=== PATIENT | male | born 1950 | race Caucasian/White ===

== ENCOUNTER → 2016-10-08 | Outpatient (CLI) | payer MEDICARE ==
[2016-10-08 10:13] LABS: Basophils # (A) 0.1 k/uL (0-0.2); Basophils % (A) 1 %; CH 29.1; Eosinophils # (A) 0.3 k/uL (0-0.7); Eosinophils % (A) 5 %; HDW 2.87; HGB 14.9 gm/dL (13.0-17.5); Luc # (Auto) 0.11; Luc % (Auto) 2; Lymphocytes # (A) 1.5 k/uL (1.0-4.8); Lymphocytes % (A) 23 %; MCH 29.1 pg (25.0-35.0); MCHC 33.9 g/dL (31.0-37.0); Monocytes # (A) 0.4 k/uL (0-1.0); Monocytes % (A) 7 %; Neutrophils % (A) 63 %; RBC 5.12 m/uL (4.30-5.90); RDW 13.7 % (11.5-15.5); WBC 6.4 k/uL (3.8-10.6); WBC (Perox) 6.51
[2016-10-08 10:25] LABS: ALT 41 U/L (21-72); AST 23 U/L (17-59); Alkaline Phosphatase 99 U/L (38-126); Anion Gap 13 mmol/L; Blood Urea Nitrogen 17 mg/dL (9-20); Calcium 9.3 mg/dL (8.4-10.2); Carbon Dioxide 25 mmol/L (22-30); Chloride 105 mmol/L (98-107); Cholesterol 113 mg/dL (<200); Glucose 131 mg/dL (74-99); HDL Cholesterol 38 mg/dL (40-60); Non-African American GFR(MDRD) >60 (>60 ml/min/1.73 sqM); Potassium 3.9 mmol/L (3.5-5.1); Sodium 143 mmol/L (137-145); Total Bilirubin 0.8 mg/dL (0.2-1.3); Total Protein 6.6 g/dL (6.3-8.2); Triglycerides 119 mg/dL (<150)
[2016-10-08 13:49] LABS: Hemoglobin A1C 6.6 % (4.2-6.1)
== END | disposition home or self-care (01) ==
LOC: LABWHC1 09:14
PROVIDERS: ATTEND Internal Medicine
DX: E78.5 Hyperlipidemia, unspecified (principal); E55.9 Vitamin D deficiency, unspecified; E11.9 Type 2 diabetes mellitus without complications; I10 Essential (primary) hypertension
CPT/HCPCS: 36415; 80053; 80061; 82306; 83036; 84439; 84443; 85025

== ENCOUNTER → 2017-08-06 | Outpatient (CLI) | payer MEDICARE ==
--- NOTE | 2017-08-06 10:16 | CT ---
EXAMINATION TYPE: CT abdomen pelvis wo con DATE OF EXAM: 08/06/2017 HISTORY: Right sided flank pain with hematuria and history of stones CT DLP: 1145 mGycm. Automated Exposure Control for Dose Reduction was Utilized. TECHNIQUE: CT scan of the abdomen and pelvis is performed without oral or IV contrast. COMPARISON: NONE FINDINGS: Within the limitations of a non-contrast study, the following observations are made. LUNG BASES: There is dense coronary artery calcification and/or stent in the RCA distribution. LIVER/GB: There are multiple small dependent gallstones and/or gallbladder sludge in gallbladder. No surrounding inflammatory change is present. PANCREAS: No significant abnormality is seen. SPLEEN: No significant abnormality is seen. ADRENALS: No significant abnormality is seen. KIDNEYS: There are 6 mm calculus in the mid to distal right ureter on axial image 115 and coronal don ge 60 not causing significant right-sided hydronephrosis. There is no additional renal calculi identi fied bilaterally. There is no significant left-sided hydronephrosis. No intraluminal calculus and hernan dder is present. BOWEL: Sutures from appendectomy at base of cecum are identified. There are numerous diverticula in t he sigmoid colon. There is no convincing CT evidence for acute diverticulitis. There is no suspicious small or large bowel dilatation. GENITAL ORGANS: No gross abnormality seen. LYMPH NODES: No greater than 1cm abdominal or pelvic lymph nodes are appreciated. OSSEOUS STRUCTURES there is moderate to severe multilevel lateral spurring in the thoracic and upper lumbar spine. There is facet arthropathy lower lumbar levels. There is moderate joint space loss and mild spurring in both hips. OTHER: No significant additional abnormality is seen. IMPRESSION: 1. There is 6 mm calculus in the right mid to distal ureter just past pelvic brim not causing signifi cant right-sided hydronephrosis.
== END | disposition home or self-care (01) ==
LOC: RADCTMAIN 09:21
PROVIDERS: ATTEND Urology
DX: N20.1 Calculus of ureter (principal)
CPT/HCPCS: 74176

== ENCOUNTER → 2017-08-31 | Outpatient (CLI) | payer MEDICARE ==
--- NOTE | 2017-08-31 09:38 | XR ---
EXAMINATION TYPE: XR abdomen 1V DATE OF EXAM: 08/31/2017 9:17 AM CLINICAL HISTORY: History of kidney stones TECHNIQUE: Single supine KUB image of the abdomen is obtained. COMPARISON: CT abdomen and pelvis August 06, 2017. FINDINGS: Over right mid sacrum there is redemonstration of 6 mm mid to distal right ureter calculus stable in position. Surgical clips right lower quadrant from appendectomy are redemonstrated. There is vascular calcifica tion phleboliths in the pelvis again seen. There is multilevel spurring in the spine. IMPRESSION: Stable 6 mm mid to distal right ureter calculus.
== END | disposition home or self-care (01) ==
LOC: RADXRMAIN 09:00
PROVIDERS: ATTEND Urology
DX: N20.1 Calculus of ureter (principal)
CPT/HCPCS: 74018

== ENCOUNTER → 2017-09-15 | Outpatient (CLI) | payer MEDICARE ==
[2017-09-15 09:42] LABS: Appearance,Urine Clear (Clear); Bacteria,Urine Moderate /hpf; Bilirubin,Urine Negative (Negative); Blood,Urine Negative (Negative); Color,Urine Yellow; Glucose,Urine (UA) Negative (Negative); Ketones,Urine Negative (Negative); Leukocyte Esterase,Urine Negative (Negative); Mucus,Urine Rare /hpf; Nitrite,Urine Negative (Negative); Protein,Urine 1+ (Negative); RBC,Urine 3 /hpf (0-5); Specific Gravity,Urine 1.027 (1.001-1.035); WBC,Urine 1 /hpf (0-5)
[2017-09-15 09:47] LABS: Basophils # (A) 0.1 k/uL (0-0.2); Basophils % (A) 1 %; Eosinophils # (A) 0.2 k/uL (0-0.7); Eosinophils % (A) 3 %; HCT 42.5 % (39.0-53.0); HGB 14.2 gm/dL (13.0-17.5); Lymphocytes # (A) 1.4 k/uL (1.0-4.8); Lymphocytes % (A) 24 %; MCH 28.1 pg (25.0-35.0); MCHC 33.4 g/dL (31.0-37.0); Mean Platelet Volume 7.4; Monocytes # (A) 0.4 k/uL (0-1.0); Monocytes % (A) 7 %; Neutrophils # (A) 3.5 k/uL (1.3-7.7); Neutrophils % (A) 64 %; Platelet Count 136 k/uL (150-450); RBC 5.05 m/uL (4.30-5.90); RDW 13.6 % (11.5-15.5); WBC 5.6 k/uL (3.8-10.6)
[2017-09-15 10:42] LABS: ALT 32 U/L (21-72); AST 21 U/L (17-59); Albumin 3.9 g/dL (3.5-5.0); Alkaline Phosphatase 107 U/L (38-126); Anion Gap 12 mmol/L; Blood Urea Nitrogen 16 mg/dL (9-20); Carbon Dioxide 29 mmol/L (22-30); Chloride 102 mmol/L (98-107); Cholesterol 102 mg/dL (<200); Glucose 155 mg/dL (74-99); HDL Cholesterol 30 mg/dL (40-60); LDL Cholesterol,Calculated 53 mg/dL (0-99); Potassium 4.5 mmol/L (3.5-5.1); Sodium 143 mmol/L (137-145); Total Bilirubin 0.6 mg/dL (0.2-1.3); Total Protein 6.3 g/dL (6.3-8.2); Triglycerides 95 mg/dL (<150); Uric Acid 5.7 mg/dL (3.5-8.5)
[2017-09-15 10:58] LABS: T4, Free (Free Thyroxine) 1.04 ng/dL (0.78-2.19)
[2017-09-15 11:02] LABS: Erythrocyte Sedimentation Rate 8 mm/hr (0-15)
[2017-09-15 12:08] LABS: PSA Annual Screen 0.54 ng/mL (0.00-4.00)
== END | disposition home or self-care (01) ==
LOC: LABWHC1 08:35
PROVIDERS: ATTEND Internal Medicine
DX: N20.0 Calculus of kidney (principal); R31.9 Hematuria, unspecified; N04.9 Nephrotic syndrome with unspecified morphologic changes
CPT/HCPCS: 84439; 80061; 80053; 85652; 84443; 84550; 85025; 81001; 83970; 87086; 82043; 82570; 36415; G0103

== ENCOUNTER → 2017-10-08 | Outpatient (CLI) | payer MEDICARE ==
--- NOTE | 2017-10-08 13:20 | XR ---
EXAMINATION TYPE: XR KUB DATE OF EXAM: 10/08/2017 12:09 PM CLINICAL HISTORY: Right-sided nephrolithiasis. TECHNIQUE: Single supine KUB image of the abdomen is obtained. COMPARISON: 08/31/2017. FINDINGS: As noted on the prior exam there is an approximately 6 mm calculus that was previously disp layed be within the distal ureter. This overlies the right hemisacrum. This is unchanged from the exa m of 08/31/2017. Multiple other phleboliths are seen within the pelvis. Mild vascular calcifications a re noted. Surgical clips are present within the right lower quadrant. No evidence of dilated bowel. T he lung bases are clear and the osseous structures are intact. Moderate bilateral femoral acetabular arthropathy is seen with bilateral femoral head neck junction protuberance CAM deformities, that may predispose the patient to internal impingement. IMPRESSION: Stable appearing approximate 6 mm calculus overlying the right hemisacrum previously demo nstrated to be within the distal ureter. This is unchanged in position from the prior of 08/31/2017.
== END | disposition home or self-care (01) ==
LOC: RADXRMAIN 11:57
PROVIDERS: ATTEND Urology
DX: N20.1 Calculus of ureter (principal)
CPT/HCPCS: 74018

== ENCOUNTER → 2017-10-11 | Outpatient (CLI) | payer MEDICARE ==
[2017-10-11 08:41] LABS: Basophils # (A) 0.1 k/uL (0-0.2); Basophils % (A) 1 %; Eosinophils # (A) 0.2 k/uL (0-0.7); Eosinophils % (A) 3 %; HCT 41.2 % (39.0-53.0); HGB 14.3 gm/dL (13.0-17.5); Lymphocytes # (A) 1.9 k/uL (1.0-4.8); Lymphocytes % (A) 27 %; MCH 28.9 pg (25.0-35.0); MCHC 34.8 g/dL (31.0-37.0); MCV 83.1 fL (80.0-100.0); Mean Platelet Volume 6.7; Monocytes # (A) 0.5 k/uL (0-1.0); Monocytes % (A) 7 %; Neutrophils # (A) 4.3 k/uL (1.3-7.7); Neutrophils % (A) 60 %; Platelet Count 141 k/uL (150-450); RBC 4.96 m/uL (4.30-5.90); RDW 14.1 % (11.5-15.5); WBC 7.2 k/uL (3.8-10.6)
== END | disposition home or self-care (01) ==
LOC: LABWHC1 07:47
PROVIDERS: ATTEND Internal Medicine
DX: D69.6 Thrombocytopenia, unspecified (principal)
CPT/HCPCS: 36415; 85025

== ENCOUNTER → 2017-10-18 | Outpatient (CLI) | payer MEDICARE ==
[2017-10-18 14:00] LABS: Calcium 9.3 mg/dL (8.4-10.2); Potassium 4.1 mmol/L (3.5-5.1)
== END | disposition home or self-care (01) ==
LOC: LABPAT 13:21
PROVIDERS: ATTEND Urology
DX: Z01.818 Encounter for other preprocedural examination (principal); E11.9 Type 2 diabetes mellitus without complications; I10 Essential (primary) hypertension; N20.1 Calculus of ureter
CPT/HCPCS: 36415; 80048; 93005

== ENCOUNTER 2017-10-25 05:50 | Day surgery (SDC) | payer MEDICARE ==
[2017-10-19 12:00] VITALS: BMI 33.2
[~2017-10-25 05:50] MED LIST: LACTATED RINGERS 1,000 ML IV SCH; Pre Op ABX Message 1 EACH MISC MISCELLANE ONE
[2017-10-25] MEDS ORDERED: LIDOCAINE 1% 20 ML VIAL (10MG/ML) FOR IV START INTRADERMA ONE (06:35)
[2017-10-25 06:38] LABS: Glucose,Whole Blood 153 mg/dL (75-99)
[2017-10-25] MEDS ORDERED: LACTATED RINGERS 1,000 ML IV ONE ×3 (06:38→08:49)
[2017-10-25 06:42] VITALS: RESP 16; TEMP 97.8
--- NOTE | 2017-10-25 07:04 | XR ---
EXAMINATION TYPE: XR KUB DATE OF EXAM: 10/25/2017 CLINICAL DATA: 67-year-old male preop lithotripsy, [facility] COMPARISON: 10/08/2017 FINDINGS: Lung bases are clear. Supine imaging limited for assessment of free intraperitoneal air. Overall nonobstructive bowel gas pattern. Cholecystectomy clips are present. Mild stool burden. Vascular calcifications are present in the pelvis. Unchanged 6 mm calcification projecting over the r ight sacrum is equivocal for a ureteral calculus or vascular calcification. IMPRESSION: Some vascular calcifications in the pelvis. Unchanged 6 mm calcification projecting over the right si de of the sacrum equivocal for vascular calcification versus right-sided ureteral calculus.
[2017-10-25] MEDS ORDERED: GLYCOPYRROLATE 0.2 MG/ML 2 ML VIAL ONE (07:41)
[2017-10-25] MEDS ORDERED: fentaNYL (PF) 50 MCG/ML 2 ML AMP ONE (07:41)
[2017-10-25] MEDS ORDERED: MIDAZOLAM 2 MG/2 ML VIAL ONE (07:41)
[2017-10-25] MEDS ORDERED: PROPOFOL 10 MG/ML 20 ML VIAL IV ONE (07:41)
[2017-10-25] MEDS ORDERED: KETAMINE 10 MG/ML 20 ML VIAL ONE (07:41)
[2017-10-25] MEDS ORDERED: diphenhydrAMINE 50 MG/ML 1 ML VIAL ONE (07:41)
--- NOTE | 2017-10-25 08:33 | P.OP ---
Date of Procedure: 10/25/17 Preoperative Diagnosis: Right ureteral calculus Postoperative Diagnosis: Right ureteral calculus Procedure(s) Performed: Extracorporal shock wave lithotripsy Anesthesia: MAC Surgeon: Antwon Shaw Estimated Blood Loss (ml): 0 Pathology: none sent Condition: stable Disposition: PACU Indications for Procedure: The patient is a 67 year male with intermittent right abdominal pain secondary to a 2.5 x 6 mm calculus located at the right sacral coccygeal junction. The calculus was initially noted on a computed tomography scan in 07/25 and has not migrated significantly since then. Treatment options were reviewed with Dr. Carrasco and ESWL has been chosen. Description of Procedure: The patient was taken to the operating suite where adequate intravenous sedation was given. The patient was placed in the supine position on the fluoroscopy table. The right ureteral calculus was localized using biplanar fluoroscopy. Lithotripsy was performed using the Dornier compact delta unit. The patient received 3000 shocks at level 6 at a rate of 80 shocks per minute. There appeared to be fragmentation of the calculus. Anesthesia was reversed and the patient was returned to the recovery room awake and in satisfactory condition. He'll be seen back in [address] Carrasco at which time a KUB will be obtained.
[2017-10-25 08:42] VITALS: PULSE 77
[2017-10-25] MEDS ORDERED: Acetaminophen-Codeine 300-30mg TAB PO ONE (09:00)
[2017-10-25 10:03] VITALS: BP 110/67
== END 2017-10-25 10:36 | disposition home or self-care (01) ==
LOC: ORWHC2ENDO 05:50
PROVIDERS: ATTEND Urology
DX: N13.2 Hydronephrosis with renal and ureteral calculous obstruction (principal); I10 Essential (primary) hypertension; E11.9 Type 2 diabetes mellitus without complications; N52.9 Male erectile dysfunction, unspecified; K21.9 Gastro-esophageal reflux disease without esophagitis; Z87.891 Personal history of nicotine dependence; E78.5 Hyperlipidemia, unspecified; Z79.84 Long term (current) use of oral hypoglycemic drugs; Z79.899 Other long term (current) drug therapy; Z87.442 Personal history of urinary calculi; Z88.5 Allergy status to narcotic agent
CPT/HCPCS: 74018; 50590; J2250; J1200; J3010; J2704

== ENCOUNTER 2017-10-25 12:12 | Emergency (ER) | payer MEDICARE ==
[2017-10-25 12:33] VITALS: RESP 20; TEMP 98
[2017-10-25] MEDS ORDERED: SODIUM CHLORIDE 0.9% 1,000 ML IV STA (12:53)
[2017-10-25] MEDS ORDERED: MORPHINE SULFATE 2 MG/ML SYRINGE IVP STA (12:53)
--- NOTE | 2017-10-25 13:02 | ED ---
General Adult HPI - General Chief complaint: Recheck/Abnormal Lab/Rx Stated complaint: post surg pain/vomiting Time Seen by Provider: 10/25/17 12:41 Source: patient, RN notes reviewed Mode of arrival: ambulatory Limitations: no limitations - History of Present Illness Initial comments: Patient 67-year-old male presenting to the emergency room today status post with the ship she performed this morning at 7 AM. He does admit that he's had difficult time urinating since. Does admit to increased pressure lower his bladder. Patient states never had lithotripsy done in the past. He does admit that he had a 6 mm stone on the right side. Patient denies any other complaints or symptoms currently. Patient denies any recent fever, chills, shortness of breath, chest pain, numbness or tingling, dysuria or hematuria, constipation or diarrhea, headaches or visual changes, or any other complaints. - Related Data Home Medications Medication Instructions Recorded Confirmed Cholecalciferol [Vitamin D3] 2,000 unit PO DAILY 02/18/15 10/25/17 Omeprazole [PriLOSEC] 20 mg PO Q48H 02/18/15 10/25/17 glipiZIDE [Glipizide ER] 5 mg PO BID 02/18/15 10/25/17 sitaGLIPtin [Januvia] 100 mg PO DAILY 02/18/15 10/25/17 Aspirin [Adult Low Dose Aspirin EC] 81 mg PO DAILY 03/18/16 10/25/17 Atorvastatin [Lipitor] 40 mg PO HS 10/19/17 10/25/17 Triamterene-Hctz 37.5-25Mg 1 cap PO DAILY 10/19/17 10/25/17 [Dyazide 37.5-25 Capsule] amLODIPine BESYLATE/BENAZEPRIL 1 cap PO DAILY 10/19/17 10/25/17 [Lotrel 5-10 mg Capsule] metFORMIN HCL 1,000 mg PO BID 10/19/17 10/25/17 Previous Rx's Medication Instructions Recorded Acetaminophen-Codeine 300-30mg 1 tab PO Q6H PRN #8 tablet 10/25/17 [Tylenol w/codeine #3] Oxybutynin Chloride [Ditropan] 5 mg PO BID 10 Days tab 10/25/17 Phenazopyridine [Pyridium] 100 mg PO TID 3 Days day 10/25/17 Allergies Allergy/AdvReac Type Severity Reaction Status Date / Time hydromorphone [From Dilaudid] AdvReac Unknown Nausea & Verified 10/25/17 12:50 Vomiting morphine AdvReac Unknown Nausea & Verified 10/25/17 12:50 Vomiting Review of Systems ROS Statement: Those systems with pertinent positive or pertinent negative responses have been documented in the HPI. ROS Other: All systems not noted in ROS Statement are negative. Past Medical History Past Medical History: Diabetes Mellitus, GERD/Reflux, Hypertension Additional Past Medical History / Comment(s): SOB, FATIGUE History of Any Multi-Drug Resistant Organisms: None Reported Past Surgical History: Appendectomy, Heart Catheterization Additional Past Surgical History / Comment(s): sx for sleep apnea Past Anesthesia/Blood Transfusion Reactions: Postoperative Nausea & Vomiting ( PONV) Past Psychological History: No Psychological Hx Reported Smoking Status: Former smoker Past Alcohol Use History: None Reported Past Drug Use History: None Reported General Exam - General Exam Comments Initial Comments: General: The patient is awake and alert, in moderate distress. Eye: Pupils are equal, round and reactive to light, extra-ocular movements are intact. No nystagmus. There is normal conjunctiva bilaterally. No signs of icterus. Ears, nose, mouth and throat: There are moist mucous membranes and no oral lesions. Neck: The neck is supple, there is no tenderness or JVD. Cardiovascular: There is a regular rate and rhythm. No murmur, rub or gallop is appreciated. Respiratory: Lungs are clear to auscultation, respirations are non-labored, breath sounds are equal. No wheezes, stridor, rales, or rhonchi. Gastrointestinal: Tender to palpation lower abdomen. No rebound tenderness. No guarding. Musculoskeletal: Normal ROM, no tenderness. Strength 5/5. Sensation intact. Pulses equal bilaterally 2+. Neurological: A&O x 3. CN II-XII intact, There are no obvious motor or sensory deficits. Coordination appears grossly intact. Speech is normal. Skin: Skin is warm and dry and no rashes or lesions are noted. Psychiatric: Cooperative, appropriate mood & affect, normal judgment. Limitations: no limitations Course Vital Signs 10/25/17 10/25/17 12:31 14:40 Temperature 98.0 F Pulse Rate 86 87 Respiratory 20 20 Rate Blood Pressure 138/84 152/79 O2 Sat by Pulse 98 95 Oximetry Medical Decision Making - Medical Decision Making Patient reexamined at this time shows no signs of distress. He does admit that he is feeling better here in the emergency room. Patient abdomen soft on palpation. His labs been reviewed. Patient unable to urinate and give urine sample. Patient had bladder scan which showed proximate 180 mL. Patient's ultrasound does show a nondistended bladder. No evidence for hydronephrosis. X -ray reviewed shows no acute abnormality. Results were discussed with patient. Options of a Cole catheter were discussed. At this time patient states that he would like to be discharged home to see if he can urinate on his own. Patient is advised follow-up with the urologist tomorrow. Advised return if any symptoms increase or worsen. - Lab Data Result diagrams: 10/25/17 13:14 10/25/17 13:14 Lab Results 10/25/17 10/25/17 Range/Units 13:14 13:14 WBC 10.1 (3.8-10.6) k/uL RBC 4.97 (4.30-5.90) m/uL Hgb 14.1 (13.0-17.5) gm/dL Hct 40.5 (39.0-53.0) % MCV 81.4 (80.0-100.0) fL MCH 28.4 (25.0-35.0) pg MCHC 34.9 (31.0-37.0) g/dL RDW 13.5 (11.5-15.5) % Plt Count 141 L (150-450) k/uL Neutrophils % 81 % Lymphocytes % 12 % Monocytes % 5 % Eosinophils % 1 % Basophils % 1 % Neutrophils # 8.2 H (1.3-7.7) k/uL Lymphocytes # 1.2 (1.0-4.8) k/uL Monocytes # 0.5 (0-1.0) k/uL Eosinophils # 0.1 (0-0.7) k/uL Basophils # 0.1 (0-0.2) k/uL Sodium 139 (137-145) mmol/L Potassium 3.9 (3.5-5.1) mmol/L Chloride 102 (98-107) mmol/L Carbon Dioxide 20 L (22-30) mmol/L Anion Gap 17 mmol/L BUN 20 (9-20) mg/dL Creatinine 1.07 (0.66-1.25) mg/dL Est GFR (CKD-EPI)AfAm 82 (>60 ml/min/1.73 sqM) Est GFR (CKD-EPI)NonAf 71 (>60 ml/min/1.73 sqM) Glucose 193 H (74-99) mg/dL Calcium 8.9 (8.4-10.2) mg/dL Total Bilirubin 1.0 (0.2-1.3) mg/dL AST 26 (17-59) U/L ALT 45 (21-72) U/L Alkaline Phosphatase 98 (38-126) U/L Total Protein 6.5 (6.3-8.2) g/dL Albumin 4.1 (3.5-5.0) g/dL Lipase 93 (23-300) U/L Disposition Clinical Impression: Abdominal pain Disposition: HOME SELF-CARE Condition: Good Instructions: Abdominal Pain (ED) Additional Instructions: Please follow-up with urology tomorrow. Please return to emergency room if unable to urinate or for any other concerns. Prescriptions: Oxybutynin Chloride [Ditropan] 5 mg PO BID 10 Days tab Phenazopyridine [Pyridium] 100 mg PO TID 3 Days day Is patient prescribed a controlled substance at d/c from ED?: No Referrals: Skyler Joseph MD [Primary Care Provider] - 1-2 days Time of Disposition: 14:52
--- NOTE | 2017-10-25 13:10 | XR ---
EXAMINATION TYPE: XR KUB DATE OF EXAM: 10/25/2017 1:03 PM CLINICAL HISTORY: Increased pain with diminished urine output and vomiting after lithotripsy today TECHNIQUE: 3 Upright KUB images of the abdomen are obtained. COMPARISON: Abdominal x-ray from earlier today. CT abdomen pelvis August 06, 2017. FINDINGS: Oval 6 mm calculus over right sacrum is not clearly seen on current study. No new nephrolit hiasis. There is overall nonobstructive bowel gas pattern. Surgical clips right lower quadrant over iliac cre st are redemonstrated from appendectomy. No pneumoperitoneum is present. There is new left basilar li near atelectasis. IMPRESSION: Suspected successful treatment of distal right ureter calculus. Overall nonobstructive bowel gas wendy matthew remains present. New left basilar lateral linear atelectasis is noted.
[2017-10-25] MEDS ORDERED: PHENAZOPYRIDINE 100 MG TAB PO STA (13:11)
[2017-10-25] MEDS ORDERED: OXYBUTYNIN CHLORIDE 5 MG TAB PO STA (13:11)
[2017-10-25 13:32] LABS: Basophils # (A) 0.1 k/uL (0-0.2); Basophils % (A) 1 %; Eosinophils # (A) 0.1 k/uL (0-0.7); Eosinophils % (A) 1 %; HCT 40.5 % (39.0-53.0); HGB 14.1 gm/dL (13.0-17.5); Lymphocytes # (A) 1.2 k/uL (1.0-4.8); Lymphocytes % (A) 12 %; MCH 28.4 pg (25.0-35.0); MCHC 34.9 g/dL (31.0-37.0); MCV 81.4 fL (80.0-100.0); Mean Platelet Volume 6.9; Monocytes # (A) 0.5 k/uL (0-1.0); Monocytes % (A) 5 %; Neutrophils # (A) 8.2 k/uL (1.3-7.7); Neutrophils % (A) 81 %; Platelet Count 141 k/uL (150-450); RBC 4.97 m/uL (4.30-5.90); RDW 13.5 % (11.5-15.5); WBC 10.1 k/uL (3.8-10.6)
[2017-10-25 13:42] LABS: Albumin 4.1 g/dL (3.5-5.0); Calcium 8.9 mg/dL (8.4-10.2); Potassium 3.9 mmol/L (3.5-5.1); Total Protein 6.5 g/dL (6.3-8.2)
--- NOTE | 2017-10-25 14:05 | US ---
EXAMINATION TYPE: US kidneys/renal and bladder DATE OF EXAM: 10/25/2017 COMPARISON: CT 08/06/2017 CLINICAL HISTORY: Patient had lithotripsy done on the right side this morning. Pain and unable to uri leo much EXAM MEASUREMENTS: Right Kidney: 10.2 x 5.2 x 5.7 cm Left Kidney: 10.1 x 5.3 x 5.1 cm Right Kidney: No hydronephrosis or masses seen Left Kidney: No hydronephrosis or masses seen Bladder: wnl as visualized, not fully distended Bilateral Jets seen: No, bladder not fully distended There is no evidence for hydronephrosis at this point in time. No nephrolithiasis is seen. No jesús s are identified. The urinary bladder is somewhat poorly distended. Bilateral ureteral jets are and not seen. IMPRESSION: No hydronephrosis is evident bilaterally. No suspicious perinephric fluid collections are seen on don ges saved.
[2017-10-25 14:41] VITALS: BP 152/79; PULSE 87
== END 2017-10-25 15:18 | disposition home or self-care (01) ==
LOC: EC 12:12
DX: R10.30 Lower abdominal pain, unspecified (principal); R39.198 Other difficulties with micturition; E11.9 Type 2 diabetes mellitus without complications; K21.9 Gastro-esophageal reflux disease without esophagitis; I10 Essential (primary) hypertension; G47.30 Sleep apnea, unspecified; Z87.891 Personal history of nicotine dependence; Z95.818 Presence of other cardiac implants and grafts; Z79.82 Long term (current) use of aspirin; Z79.84 Long term (current) use of oral hypoglycemic drugs; Z79.899 Other long term (current) drug therapy; Z88.5 Allergy status to narcotic agent; Z98.890 Other specified postprocedural states
CPT/HCPCS: 51798; 36415; 80053; 83690; 85025; 74018; 76770; 99284; 96374; 96361 ×2; J2270

== ENCOUNTER → 2017-11-01 | Outpatient (CLI) | payer MEDICARE ==
--- NOTE | 2017-11-01 13:22 | XR ---
EXAMINATION TYPE: XR KUB DATE OF EXAM: 11/01/2017 CLINICAL DATA: 67 year-old male right ureteral calculus, one week postlithotripsy, [facility] COMPARISON: 10/25/2017 FINDINGS: Lung bases are clear. Supine imaging limited for assessment of free intraperitoneal air. Nonobstructive bowel gas pattern. Mild stool in the right side of the abdomen. Surgical clips in the right mid abdomen. Tiny phleboliths in the pelvis and vascular calcifications left internal region. No definite suspicio us calcification identified. IMPRESSION: No definite suspicious calcification seen. Tiny densities in the pelvis, suspected phlebolith.
== END | disposition home or self-care (01) ==
LOC: RADXRMAIN 09:38
PROVIDERS: ATTEND Urology
DX: N20.1 Calculus of ureter (principal)
CPT/HCPCS: 74018

== ENCOUNTER → 2017-11-29 | Outpatient (CLI) | payer MEDICARE ==
--- NOTE | 2017-11-29 10:20 | XR ---
EXAMINATION TYPE: XR abdomen 1V DATE OF EXAM: 11/29/2017 COMPARISON: 11/01/2017 INDICATION: Kidney stones postlithotripsy, side not specified TECHNIQUE: Single view abdomen frontal projection supine view FINDINGS: There is a normal bowel gas pattern. Psoas margins are normal. No organomegaly is present. The inferior border of the left kidney is less distinct than the previous examination. Psoas margins however appear within normal limits. Ultrasound could be performed if the re is concern for hematoma. Renal or ureteral stones are not identified. Surgical clips are in the right abdomen. IMPRESSION: 1. Suspicious renal or ureteral stones are not identified. 2. There is less distinct inferior border of the left kidney. If there is concern for hematoma at thi s level, ultrasound could be performed.
== END | disposition home or self-care (01) ==
LOC: RADXRMAIN 09:25
PROVIDERS: ATTEND Urology
DX: N20.1 Calculus of ureter (principal)
CPT/HCPCS: 74018

== ENCOUNTER → 2017-12-16 | Outpatient (CLI) | payer MEDICARE ==
--- NOTE | 2017-12-16 11:40 | XR ---
EXAMINATION TYPE: XR chest 2V DATE OF EXAM: 12/16/2017 COMPARISON: 02/20/2011 HISTORY: Cough TECHNIQUE: Frontal and lateral views of the chest are obtained. FINDINGS: There is no focal air space opacity, pleural effusion, or pneumothorax seen. The cardiac silhouette size is within normal limits. There are prominent epicardial fat pads noted is similar to the prior exam. The osseous structures are intact. Mild multilevel degenerative changes of the thorac ic spine are seen. IMPRESSION: No acute cardiopulmonary process.
== END | disposition home or self-care (01) ==
LOC: RADXRMAIN 10:58
PROVIDERS: ATTEND Internal Medicine
DX: R05 Cough (principal)
CPT/HCPCS: 71046

== ENCOUNTER → 2018-10-18 | Outpatient (CLI) | payer MEDICARE ==
[2018-10-18 11:13] LABS: Basophils # (A) 0.1 k/uL (0-0.2); Basophils % (A) 1 %; Eosinophils # (A) 0.3 k/uL (0-0.7); Eosinophils % (A) 4 %; HCT 39.5 % (39.0-53.0); HGB 13.1 gm/dL (13.0-17.5); Lymphocytes # (A) 1.4 k/uL (1.0-4.8); Lymphocytes % (A) 21 %; MCH 27.8 pg (25.0-35.0); MCHC 33.1 g/dL (31.0-37.0); Mean Platelet Volume 6.8; Monocytes # (A) 0.5 k/uL (0-1.0); Monocytes % (A) 7 %; Neutrophils # (A) 4.4 k/uL (1.3-7.7); Neutrophils % (A) 65 %; Platelet Count 153 k/uL (150-450); RBC 4.71 m/uL (4.30-5.90); RDW 13.8 % (11.5-15.5); WBC 6.7 k/uL (3.8-10.6)
[2018-10-18 16:15] LABS: African American GFR (CKD) 70.6 (60.0-200.0); Albumin 4.2 g/dL (3.80-4.90); Albumin/Globulin Ratio 2.21 (1.60-3.17); Anion Gap 12.4 mmol/L (4.00-12.00); BUN/Creat Ratio 14.17 Ratio (12.00-20.00); Calcium 9.3 mg/dL (8.7-10.3); Carbon Dioxide 26.6 mmol/L (21.6-31.8); Globulin 1.9 g/dL (1.6-3.3); LDL Cholesterol,Calculated 56.6 mg/dL (0.0-131.0); Potassium 3.6 mmol/L (3.5-5.5); Total Bilirubin 0.7 mg/dL (0.2-1.2); Total Protein 6.1 g/dL (6.2-8.2); VLDL Calculation 27.4 mg/dL (5.00-40.00)
[2018-10-18 16:22] LABS: T4, Free (Free Thyroxine) 1.1 ng/dL (0.80-1.80)
[2018-10-18 21:02] LABS: Hemoglobin A1C 7.8 % (4.0-6.0)
== END | disposition home or self-care (01) ==
LOC: LABWHC1 09:37
PROVIDERS: ATTEND Internal Medicine
DX: Z00.00 Encounter for general adult medical examination without abnormal findings (principal); E11.9 Type 2 diabetes mellitus without complications; E78.5 Hyperlipidemia, unspecified; I10 Essential (primary) hypertension
CPT/HCPCS: 84439; 80061; 80053; 84443; 85025; 82043; 82570; 83036; 36415; G0103

== ENCOUNTER → 2019-02-15 | Outpatient (CLI) | payer MEDICARE ==
[2019-02-15 17:41] LABS: African American GFR (CKD) 58.6 (60.0-200.0); Albumin 4.2 g/dL (3.80-4.90); Albumin/Globulin Ratio 2.47 (1.60-3.17); Anion Gap 7.8 mmol/L (4.00-12.00); BUN/Creat Ratio 16.43 Ratio (12.00-20.00); Calcium 9.4 mg/dL (8.7-10.3); Carbon Dioxide 29.2 mmol/L (21.6-31.8); Chol/HDL Ratio 3.28; Globulin 1.7 g/dL (1.6-3.3); Total Protein 5.9 g/dL (6.2-8.2)
== END | disposition home or self-care (01) ==
LOC: LABWHC1 09:31
PROVIDERS: ATTEND Internal Medicine Endocrinology, Diabetes & Metabolism
DX: E11.65 Type 2 diabetes mellitus with hyperglycemia (principal)
CPT/HCPCS: 36415; 80053; 80061; 82043; 82570; 83036; 84443

== ENCOUNTER → 2019-04-20 | Outpatient (CLI) | payer MEDICARE ==
[2019-04-20 10:51] LABS: Basophils # (A) 0.1 k/uL (0-0.2); Basophils % (A) 1 %; Eosinophils # (A) 0.3 k/uL (0-0.7); Eosinophils % (A) 5 %; HCT 38.6 % (39.0-53.0); Lymphocytes # (A) 1.6 k/uL (1.0-4.8); Lymphocytes % (A) 24 %; MCH 28.9 pg (25.0-35.0); MCHC 33.6 g/dL (31.0-37.0); MCV 85.9 fL (80.0-100.0); Mean Platelet Volume 7.4; Monocytes # (A) 0.5 k/uL (0-1.0); Monocytes % (A) 8 %; Neutrophils # (A) 3.9 k/uL (1.3-7.7); Neutrophils % (A) 61 %; Platelet Count 153 k/uL (150-450); RBC 4.49 m/uL (4.30-5.90); RDW 13.6 % (11.5-15.5); WBC 6.5 k/uL (3.8-10.6)
[2019-04-20 12:07] LABS: Erythrocyte Sedimentation Rate 10 mm/hr (0-15)
[2019-04-20 15:45] LABS: % Iron Saturation 13.89 (15.00-50.00); African American GFR (CKD) 64.1 (60.0-200.0); Albumin 4.3 g/dL (3.80-4.90); Albumin/Globulin Ratio 2.53 (1.60-3.17); Anion Gap 10.1 mmol/L (4.00-12.00); BUN/Creat Ratio 16.15 Ratio (12.00-20.00); Calcium 8.8 mg/dL (8.7-10.3); Carbon Dioxide 29.9 mmol/L (21.6-31.8); Globulin 1.7 g/dL (1.6-3.3); Non-African American GFR(CKD) 55.3 (60.0-200.0); Potassium 3.8 mmol/L (3.5-5.5); Total Bilirubin 0.4 mg/dL (0.3-1.2)
[2019-04-20 15:54] LABS: Ferritin 56.1 ng/mL (22.0-322.0)
== END | disposition home or self-care (01) ==
LOC: LABWHC1 09:30
PROVIDERS: ATTEND Internal Medicine
DX: N18.9 Chronic kidney disease, unspecified (principal); R53.83 Other fatigue; R53.1 Weakness; D63.1 Anemia in chronic kidney disease
CPT/HCPCS: 36415; 80053; 82607; 82728; 83540; 83550; 85025; 85652

== ENCOUNTER 2019-05-23 06:45 | Day surgery (SDC) | payer MEDICARE ==
[2019-05-19 11:54] VITALS: BMI 31.8
[~2019-05-23 06:45] MED LIST changes: +LIDOCAINE 1% 20 ML VIAL (10MG/ML) FOR IV START INTRADERMA PRN; -Pre Op ABX Message 1 EACH MISC MISCELLANE ONE
[2019-05-23 07:12] VITALS: TEMP 98
[2019-05-23] MEDS ORDERED: LACTATED RINGERS 1,000 ML IV ONE ×2 (07:19)
[2019-05-23 07:20] LABS: Glucose,Whole Blood 125 mg/dL (75-99)
[2019-05-23] MEDS ORDERED: PROPOFOL 10 MG/ML 20 ML VIAL IV ONE (07:33)
--- NOTE | 2019-05-23 07:58 | P.PCN ---
Date of Procedure: 05/23/19 Description of Procedure: BRIEF HISTORY: Patient is a 68-year-old male who presents for outpatient esophagogastroduodenoscopy for evaluation of symptoms of reflux disease. PROCEDURE PERFORMED: Esophagogastroduodenoscopy with biopsy . PREOPERATIVE DIAGNOSIS: GERD. ESTIMATED BLOOD LOSS: Minimal. IV sedation per anesthesia. PROCEDURE: After informed consent was obtained, the patient was brought into the endoscopy unit. IV sedation was administered by Anesthesia under continuous monitoring. Initially the Olympus GIF-190 video endoscope was inserted into the mouth. Esophagus intubated without any difficulty. It was gradually advanced into the stomach and duodenum and carefully examined. The bulb and the second part of the duodenum appeared normal, With biopsies taken to rule out celiac sprue. The scope at this time was withdrawn to the stomach, adequately insufflated with air, and upon careful examination, mucosa of the antrum, body, cardia and the fundus appeared normal Except for some mild punctate erythema in the antrum and body and a few superficial erosions in the antrum suggestive of mild gastritis biopsies of the antrum and body taken. The scope was then withdrawn into the esophagus. The GE junction was located at 42 cm from the incisors, With biops ies taken. The esophagus appeared normal. There were no erosions or ulcerations seen and the patient tolerated the procedure well. IMPRESSION: 1. Mild gastritis antrum body, biopsied. 2. Biopsies of the duodenum and GE junction. RECOMMENDATIONS: The findings of this examination were discussed with the patient and his . Okay to resume diet. Okay to resume medications. Await pathology from biopsies. Continue current reflux medical regimen.
[2019-05-23 08:27] VITALS: BP 122/76; PULSE 90; RESP 20
== END 2019-05-23 08:26 | disposition home or self-care (01) ==
LOC: ORWHC2ENDO 06:45
PROVIDERS: ATTEND Internal Medicine
DX: K29.50 Unspecified chronic gastritis without bleeding (principal); K21.9 Gastro-esophageal reflux disease without esophagitis; I10 Essential (primary) hypertension; G47.33 Obstructive sleep apnea (adult) (pediatric); E11.9 Type 2 diabetes mellitus without complications; Z79.899 Other long term (current) drug therapy; Z79.84 Long term (current) use of oral hypoglycemic drugs; Z87.891 Personal history of nicotine dependence; Z98.890 Other specified postprocedural states; Z90.49 Acquired absence of other specified parts of digestive tract
CPT/HCPCS: 88305; 43239; J2704

== ENCOUNTER → 2019-10-25 | Outpatient (CLI) | payer MEDICARE ==
[2019-10-25 09:20] LABS: Basophils # (A) 0.1 k/uL (0-0.2); Basophils % (A) 1 %; Eosinophils # (A) 0.2 k/uL (0-0.7); Eosinophils % (A) 3 %; HCT 40.7 % (39.0-53.0); HGB 13.3 gm/dL (13.0-17.5); Lymphocytes # (A) 2.1 k/uL (1.0-4.8); Lymphocytes % (A) 28 %; MCHC 32.8 g/dL (31.0-37.0); MCV 85.3 fL (80.0-100.0); Mean Platelet Volume 6.9; Monocytes # (A) 0.5 k/uL (0-1.0); Monocytes % (A) 7 %; Neutrophils # (A) 4.4 k/uL (1.3-7.7); Neutrophils % (A) 60 %; Platelet Count 151 k/uL (150-450); RBC 4.77 m/uL (4.30-5.90); RDW 13.5 % (11.5-15.5); WBC 7.3 k/uL (3.8-10.6)
[2019-10-25 18:19] LABS: Hemoglobin A1C 6.3 % (4.0-6.0)
[2019-10-25 18:37] LABS: Ferritin 96.7 ng/mL (22.0-322.0)
[2019-10-25 18:54] LABS: % Iron Saturation 18.98 (15.00-50.00); African American GFR (CKD) 53.5 (60.0-200.0); Albumin 4.4 g/dL (3.80-4.90); Albumin/Globulin Ratio 2.32 (1.60-3.17); Anion Gap 12.5 mmol/L (4.00-12.00); BUN/Creat Ratio 16.67 Ratio (12.00-20.00); Calcium 9.4 mg/dL (8.7-10.3); Carbon Dioxide 27.5 mmol/L (21.6-31.8); Chol/HDL Ratio 2.88; Globulin 1.9 g/dL (1.6-3.3); Non-African American GFR(CKD) 46.2 (60.0-200.0); Potassium 3.5 mmol/L (3.5-5.5); Total Bilirubin 0.8 mg/dL (0.2-1.2); Total Protein 6.3 g/dL (6.2-8.2)
[2019-10-25 19:24] LABS: Urine Creatinine 304.2 mg/dL
== END | disposition home or self-care (01) ==
LOC: LABWHC1 08:36
PROVIDERS: ATTEND Internal Medicine Endocrinology, Diabetes & Metabolism
DX: Z12.5 Encounter for screening for malignant neoplasm of prostate (principal); E11.9 Type 2 diabetes mellitus without complications; D64.9 Anemia, unspecified; E78.00 Pure hypercholesterolemia, unspecified; I10 Essential (primary) hypertension; K21.9 Gastro-esophageal reflux disease without esophagitis; E55.9 Vitamin D deficiency, unspecified
CPT/HCPCS: 80061; 80053; 82728; 83540; 83550; 84443; 85025; 82306; 82043; 82570; 83036; 36415; G0103

== ENCOUNTER → 2020-02-06 | Outpatient (CLI) | payer MEDICARE ==
[2020-02-06 17:14] LABS: Hemoglobin A1C 6.2 % (4.0-6.0)
[2020-02-06 17:36] LABS: African American GFR (CKD) 63.6 (60.0-200.0); Albumin 4.3 g/dL (3.80-4.90); Albumin/Globulin Ratio 2.26 (1.60-3.17); Anion Gap 9.8 mmol/L (4.00-12.00); BUN/Creat Ratio 13.08 Ratio (12.00-20.00); Bilirubin, Conjugated 0.2 mg/dL (0.20-0.40); Bilirubin,Unconjugated 0.4 mg/dL; Calcium 8.9 mg/dL (8.7-10.3); Carbon Dioxide 28.2 mmol/L (21.6-31.8); Chol/HDL Ratio 4.24; Globulin 1.9 g/dL (1.6-3.3); LDL Cholesterol,Calculated 106.8 mg/dL (0.0-131.0); Non-African American GFR(CKD) 54.9 (60.0-200.0); Potassium 3.7 mmol/L (3.5-5.5); Total Bilirubin 0.6 mg/dL (0.3-1.2); Total Protein 6.2 g/dL (6.2-8.2); VLDL Calculation 29.2 mg/dL (5.00-40.00)
== END | disposition home or self-care (01) ==
LOC: LABWHC1 09:25
PROVIDERS: ATTEND Internal Medicine
DX: E78.5 Hyperlipidemia, unspecified (principal); E11.9 Type 2 diabetes mellitus without complications; I10 Essential (primary) hypertension
CPT/HCPCS: 36415; 80048; 80061; 80076; 83036

== ENCOUNTER → 2020-03-19 | Outpatient (CLI) | payer MEDICARE ==
[2020-03-19 16:34] LABS: Basophils # (A) 0.1 k/uL (0-0.2); Basophils % (A) 1 %; Eosinophils # (A) 0.2 k/uL (0-0.7); Eosinophils % (A) 2 %; HCT 41.8 % (39.0-53.0); Lymphocytes # (A) 2.7 k/uL (1.0-4.8); Lymphocytes % (A) 28 %; MCH 28.8 pg (25.0-35.0); MCHC 33.5 g/dL (31.0-37.0); MCV 85.9 fL (80.0-100.0); Monocytes # (A) 0.7 k/uL (0-1.0); Monocytes % (A) 7 %; Neutrophils # (A) 5.7 k/uL (1.3-7.7); Neutrophils % (A) 60 %; Platelet Count 208 k/uL (150-450); RBC 4.86 m/uL (4.30-5.90); RDW 13.3 % (11.5-15.5); WBC 9.4 k/uL (3.8-10.6)
[2020-03-20 00:35] LABS: Erythrocyte Sedimentation Rate 12 mm/Hr (0-20)
[2020-03-20 14:13] LABS: HLA B27 NEGATIVE
== END | disposition home or self-care (01) ==
LOC: LABWHC1 15:49
PROVIDERS: ATTEND Internal Medicine
DX: Z03.89 Encounter for observation for other suspected diseases and conditions ruled out (principal)
CPT/HCPCS: 36415; 85025; 85652; 86038; 86431; 86812

== ENCOUNTER → 2020-08-12 | Outpatient (CLI) | payer MEDICARE ==
[2020-08-12 22:42] LABS: Hemoglobin A1C 6.2 % (4.0-6.0)
[2020-08-12 23:05] LABS: African American GFR (CKD) 70.1 (60.0-200.0); Albumin 4.3 g/dL (3.80-4.90); Albumin/Globulin Ratio 2.53 (1.60-3.17); Anion Gap 9.2 mmol/L (4.00-12.00); BUN/Creat Ratio 12.5 Ratio (12.00-20.00); Calcium 9.5 mg/dL (8.7-10.3); Carbon Dioxide 27.8 mmol/L (21.6-31.8); Chol/HDL Ratio 3.39; Globulin 1.7 g/dL (1.6-3.3); LDL Cholesterol,Calculated 41.6 mg/dL (0.0-131.0); Non-African American GFR(CKD) 60.5 (60.0-200.0); Potassium 3.7 mmol/L (3.5-5.5); Total Bilirubin 0.7 mg/dL (0.2-1.2); VLDL Calculation 32.4 mg/dL (5.00-40.00)
[2020-08-13 04:45] LABS: Urine Creatinine 251.8 mg/dL
== END | disposition home or self-care (01) ==
LOC: LABWHC1 11:05
PROVIDERS: ATTEND Internal Medicine Endocrinology, Diabetes & Metabolism
DX: E11.65 Type 2 diabetes mellitus with hyperglycemia (principal)
CPT/HCPCS: 36415; 80053; 80061; 82043; 82570; 83036; 84443

== ENCOUNTER → 2020-10-31 | Outpatient (CLI) | payer MEDICARE ==
[2020-10-31 15:18] LABS: Basophils # (A) 0.06 X 10*3/uL (0.00-0.10); Eosinophils # (A) 0.13 X 10*3/uL (0.04-0.35); Eosinophils % (A) 2.1 %; HCT 40.2 % (39.6-50.0); HGB 13.4 g/dL (13.0-17.0); Lymphocytes # (A) 1.79 X 10*3/uL (0.90-5.00); Lymphocytes % (A) 28.4 %; MCH 28.5 pg (27.0-32.0); MCHC 33.3 g/dL (32.0-37.0); MCV 85.5 fL (80.0-97.0); Monocytes % (A) 7.9 %; Neutrophils % (A) 60.3 %; Platelet Count 165 X 10*3/uL (140-440); RDW 13.2 % (11.5-14.5)
[2020-10-31 17:10] LABS: Anion Gap 9.6 mmol/L (4.00-12.00); Carbon Dioxide 26.4 mmol/L (21.6-31.8); Potassium 3.5 mmol/L (3.5-5.5)
[2020-10-31 17:24] LABS: PSA Annual Screen 0.6 ng/mL (0.0-4.0)
== END | disposition home or self-care (01) ==
LOC: LABWHC1 09:45
PROVIDERS: ATTEND Internal Medicine
DX: Z12.5 Encounter for screening for malignant neoplasm of prostate (principal); E11.22 Type 2 diabetes mellitus with diabetic chronic kidney disease; I12.9 Hypertensive chronic kidney disease with stage 1 through stage 4 chronic kidney disease, or unspecified chronic kidney disease; N18.9 Chronic kidney disease, unspecified
CPT/HCPCS: 80051; 85025; 36415; G0103

== ENCOUNTER → 2021-01-21 | Outpatient (CLI) | payer MEDICARE | END | disposition home or self-care (01) | LOC: LABWHC1 12:51 | PROVIDERS: ATTEND Ophthalmology Ophthalmic Plastic and Reconstructive Surgery | DX: Z01.818 Encounter for other preprocedural examination (principal); I49.3 Ventricular premature depolarization; R94.31 Abnormal electrocardiogram [ECG] [EKG] | CPT/HCPCS: 36415; 93005 ==

== ENCOUNTER → 2021-02-07 | Outpatient (CLI) | payer MEDICARE ==
--- NOTE | 2021-02-07 17:00 | ECHOF ---
Referral Reason:I49.9 Cardiac arrhythmia MEASUREMENTS -------- HEIGHT: 182.9 cm WEIGHT: 108.9 kg BP: RVIDd: 3.0 cm (< 3.3) IVSd: 1.3 cm (0.6 - 1.1) LVIDd: 5.4 cm (3.9 - 5.3) LVPWd: 1.5 cm (0.6 - 1.1) IVSs: 1.3 cm LVIDs: 3.8 cm LVPWs: 1.2 cm LAESV Index (A-L): 30.84 ml/m Ao Diam: 4.0 cm (2.0 - 3.7) AV Cusp: 2.4 cm (1.5 - 2.6) LA Diam: 4.2 cm (2.7 - 3.8) MV EXCURSION: 13.946 mm (> 18.000) MV EF SLOPE: 79 mm/s (70 - 150) EPSS: 0.7 cm MV E Felix: 0.70 m/s MV DecT: 204 ms MV A Felix: 1.03 m/s MV E/A Ratio: 0.67 RAP: 3.00 mmHg RVSP: 27.97 mmHg FINDINGS -------- Sinus rhythm. This was a technically adequate study. The left ventricular size is normal. There is mild concentric left ventricular hypertrophy. Overa ll left ventricular systolic function is normal with, an EF between 55 - 60 %. The diastolic fillin g pattern is normal for the age of the patient 13.24. The right ventricle is normal in size. LA is midly dilated 29-33ml/m2. The right atrial size is normal. Interatrial and interventricular septum intact. The aortic valve is trileaflet and appears structurally normal. There is no evidence of aortic regu rgitation. There is no evidence of aortic stenosis. Mild mitral regurgitation is present. Mild tricuspid regurgitation present. There is no evidence of pulmonary hypertension. The right v entricular systolic pressure, as measured by Doppler, is 27.97mmHg. There is no pulmonic regurgitation present. The aortic root size is normal. IVC Not well visulized. There is no pericardial effusion. CONCLUSIONS -------- 1. The left ventricular size is normal. 2. There is mild concentric left ventricular hypertrophy. 3. Overall left ventricular systolic function is normal with, an EF between 55 - 60 %. 4. The diastolic filling pattern is normal for the age of the patient 13.24 5. LA is midly dilated 29-33ml/m2. 6. The aortic valve is trileaflet and appears structurally normal. 7. Mild mitral regurgitation is present. 8. Mild tricuspid regurgitation present. PHOSPHORIC ACID OPERATOR: Virginia Aguayo RDCS
== END | disposition home or self-care (01) ==
LOC: RADECHMAIN 13:37
PROVIDERS: ATTEND Internal Medicine
DX: I08.1 Rheumatic disorders of both mitral and tricuspid valves (principal)
CPT/HCPCS: 93306

== ENCOUNTER → 2021-04-14 | Outpatient (CLI) | payer MEDICARE ==
[2021-04-14 14:29] LABS: Basophils # (A) 0.06 X 10*3/uL (0.00-0.10); Eosinophils # (A) 0.18 X 10*3/uL (0.04-0.35); Eosinophils % (A) 3.1 %; HCT 41.6 % (39.6-50.0); HGB 13.3 g/dL (13.0-17.0); Lymphocytes # (A) 1.87 X 10*3/uL (0.90-5.00); Lymphocytes % (A) 31.9 %; MCH 27.8 pg (27.0-32.0); MCV 86.8 fL (80.0-97.0); Mean Platelet Volume 10.7 fL (9.5-12.2); Monocytes # (A) 0.52 X 10*3/uL (0.20-1.00); Monocytes % (A) 8.9 %; Neutrophils # (A) 3.21 X 10*3/uL (1.80-7.70); Neutrophils % (A) 54.6 %; Platelet Count 155 X 10*3/uL (140-440); RBC 4.79 X 10*6/uL (4.40-5.60); RDW 13.1 % (11.5-14.5); WBC 5.87 X 10*3/uL (4.50-10.00)
[2021-04-14 15:18] LABS: ALT 18 U/L (10-49); AST 16 U/L (14-35); African American GFR (CKD) 51.1 (60.0-200.0); Albumin 4.3 g/dL (3.8-4.9); Albumin/Globulin Ratio 2.12 (1.60-3.17); Alkaline Phosphatase 87 U/L (41-126); BUN/Creat Ratio 12.45 Ratio (12.00-20.00); Blood Urea Nitrogen 19.3 mg/dL (9.0-27.0); Calcium 8.9 mg/dL (8.7-10.3); Carbon Dioxide 27.4 mmol/L (20.0-27.5); Chloride 101 mmol/L (96-109); Chol/HDL Ratio 3.22 Ratio; Glucose 145 mg/dL (70-110); Non-African American GFR(CKD) 44.1 (60.0-200.0); Potassium 3.7 mmol/L (3.5-5.5); Sodium 141 mmol/L (135-145); Total Protein 6.3 g/dL (6.2-8.2)
== END | disposition home or self-care (01) ==
LOC: LABWHC1 09:02
PROVIDERS: ATTEND Internal Medicine Endocrinology, Diabetes & Metabolism
DX: E11.22 Type 2 diabetes mellitus with diabetic chronic kidney disease (principal); N18.9 Chronic kidney disease, unspecified
CPT/HCPCS: 36415; 80053; 80061; 82043; 82570; 83036; 84443; 85025

== ENCOUNTER → 2021-09-11 | Outpatient (CLI) | payer MEDICARE ==
[2021-09-11 15:24] LABS: HCT 41.6 % (39.6-50.0); MCHC 33.7 g/dL (32.0-37.0); MCV 86.1 fL (80.0-97.0); Mean Platelet Volume 11.3 fL (9.5-12.2); NRBC Per 100 WBC 0 /100 WBCS (0.0-0.0); Platelet Count 173 X 10*3/uL (140-440); RBC 4.83 X 10*6/uL (4.40-5.60); RDW 13.3 % (11.5-14.5); WBC 6.77 X 10*3/uL (4.50-10.00)
[2021-09-11 15:25] LABS: ALT 11 U/L (10-49); AST 14 U/L (14-35); African American GFR (CKD) 55.9 (60.0-200.0); Albumin 4.5 g/dL (3.8-4.9); Albumin/Globulin Ratio 1.78 (1.60-3.17); Alkaline Phosphatase 82 U/L (41-126); BUN/Creat Ratio 13.64 Ratio (12.00-20.00); Blood Urea Nitrogen 19.5 mg/dL (9.0-27.0); Calcium 9.2 mg/dL (8.7-10.3); Carbon Dioxide 24.9 mmol/L (20.0-27.5); Chloride 100 mmol/L (96-109); Chol/HDL Ratio 3.44 Ratio; Globulin 2.5 g/dL (1.6-3.3); Glucose 107 mg/dL (70-110); LDL Cholesterol,Calculated 47.6 mg/dL (0.0-131.0); Non-African American GFR(CKD) 48.2 (60.0-200.0); Potassium 3.5 mmol/L (3.5-5.5); Sodium 138 mmol/L (135-145)
[2021-09-11 20:25] LABS: Microalbumin Creatinine Ratio <30 mg/g Creat (0-30)
== END | disposition home or self-care (01) ==
LOC: LABWHC1 07:47
PROVIDERS: ATTEND Internal Medicine Endocrinology, Diabetes & Metabolism
DX: Z12.5 Encounter for screening for malignant neoplasm of prostate (principal); E11.65 Type 2 diabetes mellitus with hyperglycemia
CPT/HCPCS: 80061; 80053; 84443; 85027; 82043; 82570; 83036; 36415; G0103

== ENCOUNTER → 2022-01-13 | Outpatient (CLI) | payer MEDICARE ==
[2022-01-13 11:19] LABS: ALT 15 U/L (10-49); AST 15 U/L (14-35); African American GFR (CKD) 54.5 (60.0-200.0); Albumin 4.4 g/dL (3.8-4.9); Albumin/Globulin Ratio 2.17 (1.60-3.17); Alkaline Phosphatase 86 U/L (41-126); BUN/Creat Ratio 12.88 Ratio (12.00-20.00); Blood Urea Nitrogen 18.8 mg/dL (9.0-27.0); Calcium 9.4 mg/dL (8.7-10.3); Carbon Dioxide 26.3 mmol/L (20.0-27.5); Chloride 97 mmol/L (96-109); Chol/HDL Ratio 3.27 Ratio; Glucose 141 mg/dL (70-110); LDL Cholesterol,Calculated 45.5 mg/dL (0.0-131.0); Potassium 3.5 mmol/L (3.5-5.5); Sodium 137 mmol/L (135-145); Total Protein 6.4 g/dL (6.2-8.2)
[2022-01-14 00:22] LABS: Microalbumin Creatinine Ratio <30 mg/g Creat (0-30)
== END | disposition home or self-care (01) ==
LOC: LABWHC1 08:08
PROVIDERS: ATTEND Internal Medicine Endocrinology, Diabetes & Metabolism
DX: E11.65 Type 2 diabetes mellitus with hyperglycemia (principal)
CPT/HCPCS: 36415; 80053; 80061; 82043; 82570; 83036; 84443

== ENCOUNTER → 2022-04-24 | Outpatient (CLI) | payer MEDICARE ==
[2022-04-24 18:55] LABS: Basophils % (A) 1.5 %; Eosinophils # (A) 0.14 X 10*3/uL (0.04-0.35); Eosinophils % (A) 2.1 %; HCT 40.8 % (39.6-50.0); HGB 14.2 g/dL (13.0-17.0); Immature Grans, Automated 0.4 %; Lymphocytes # (A) 1.89 X 10*3/uL (0.90-5.00); Lymphocytes % (A) 27.8 %; MCHC 34.8 g/dL (32.0-37.0); MCV 86.1 fL (80.0-97.0); Mean Platelet Volume 11.2 fL (9.5-12.2); Monocytes # (A) 0.66 X 10*3/uL (0.20-1.00); Monocytes % (A) 9.7 %; NRBC Per 100 WBC 0 /100 WBCS (0.0-0.0); Neutrophils # (A) 3.97 X 10*3/uL (1.80-7.70); Neutrophils % (A) 58.5 %; Platelet Count 167 X 10*3/uL (140-440); RBC 4.74 X 10*6/uL (4.40-5.60); RDW 13.5 % (11.5-14.5); WBC 6.79 X 10*3/uL (4.50-10.00)
[2022-04-24 19:14] LABS: ALT 15 U/L (10-49); AST 13 U/L (14-35); African American GFR (CKD) 55.9 (60.0-200.0); Albumin 4.5 g/dL (3.8-4.9); Albumin/Globulin Ratio 2.32 (1.60-3.17); Alkaline Phosphatase 87 U/L (41-126); BUN/Creat Ratio 12.59 Ratio (12.00-20.00); Calcium 9.2 mg/dL (8.7-10.3); Carbon Dioxide 25.1 mmol/L (20.0-27.5); Chloride 103 mmol/L (96-109); Chol/HDL Ratio 3.05 Ratio; Globulin 1.9 g/dL (1.6-3.3); Glucose 85 mg/dL (70-110); LDL Cholesterol,Calculated 51.5 mg/dL (0.0-131.0); Non-African American GFR(CKD) 48.2 (60.0-200.0); Potassium 3.6 mmol/L (3.5-5.5); Sodium 142 mmol/L (135-145); Total Protein 6.4 g/dL (6.2-8.2)
== END | disposition home or self-care (01) ==
LOC: LABWHC1 11:19
PROVIDERS: ATTEND Internal Medicine
DX: Z12.5 Encounter for screening for malignant neoplasm of prostate (principal); I10 Essential (primary) hypertension; E78.5 Hyperlipidemia, unspecified; E11.9 Type 2 diabetes mellitus without complications
CPT/HCPCS: 84439; 80061; 80053; 84443; 85025; 82306; 83036; 36415; G0103

== ENCOUNTER → 2022-09-16 | Outpatient (CLI) | payer MEDICARE ==
[2022-09-16 15:44] LABS: Basophils # (A) 0.08 X 10*3/uL (0.00-0.10); Basophils % (A) 1.2 %; Eosinophils # (A) 0.18 X 10*3/uL (0.04-0.35); Eosinophils % (A) 2.7 %; HCT 40.6 % (39.6-50.0); HGB 13.7 g/dL (13.0-17.0); Immature Grans, Automated 0.3 %; Lymphocytes # (A) 1.81 X 10*3/uL (0.90-5.00); Lymphocytes % (A) 27.1 %; MCH 28.8 pg (27.0-32.0); MCHC 33.7 g/dL (32.0-37.0); MCV 85.5 fL (80.0-97.0); Mean Platelet Volume 10.6 fL (9.5-12.2); Monocytes # (A) 0.55 X 10*3/uL (0.20-1.00); Monocytes % (A) 8.2 %; NRBC Per 100 WBC 0 /100 WBCS (0.0-0.0); Neutrophils # (A) 4.04 X 10*3/uL (1.80-7.70); Neutrophils % (A) 60.5 %; Platelet Count 168 X 10*3/uL (140-440); RBC 4.75 X 10*6/uL (4.40-5.60); RDW 13.5 % (11.5-14.5); WBC 6.68 X 10*3/uL (4.50-10.00)
[2022-09-16 16:19] LABS: ALT 16 U/L (10-49); AST 14 U/L (14-35); Albumin 4.5 g/dL (3.8-4.9); Albumin/Globulin Ratio 2.05 (1.60-3.17); Alkaline Phosphatase 96 U/L (41-126); BUN/Creat Ratio 14.36 Ratio (12.00-20.00); Blood Urea Nitrogen 20.1 mg/dL (9.0-27.0); Calcium 9.1 mg/dL (8.7-10.3); Carbon Dioxide 25.9 mmol/L (20.0-27.5); Chloride 102 mmol/L (96-109); Chol/HDL Ratio 3.16 Ratio; Globulin 2.2 g/dL (1.6-3.3); Glucose 111 mg/dL (70-110); LDL Cholesterol,Calculated 54.3 mg/dL (0.0-131.0); Non-African American GFR(CKD) 49.1 (60.0-200.0); Potassium 3.6 mmol/L (3.5-5.5); Sodium 142 mmol/L (135-145); Total Protein 6.7 g/dL (6.2-8.2)
[2022-09-16 19:56] LABS: Microalbumin Creatinine Ratio <30 mg/g Creat (0-30)
== END | disposition home or self-care (01) ==
LOC: LABWHC1 09:41
PROVIDERS: ATTEND Internal Medicine Endocrinology, Diabetes & Metabolism
DX: E11.65 Type 2 diabetes mellitus with hyperglycemia (principal)
CPT/HCPCS: 36415; 80053; 80061; 82043; 82570; 83036; 84153; 84443; 85025

== ENCOUNTER → 2023-01-21 | Outpatient (CLI) | payer MEDICARE ==
[2023-01-21 15:18] LABS: ALT 12 U/L (10-49); AST 15 U/L (14-35); Albumin 4.5 d/dL (3.8-4.9); Albumin/Globulin Ratio 2.37 Ratio (1.60-3.17); Alkaline Phosphatase 85 U/L (41-126); BUN/Creat Ratio 12.59 Ratio (12.00-20.00); Blood Urea Nitrogen 21.4 mg/dL (9.0-27.0); Carbon Dioxide 26.1 mmol/L (21.6-31.8); Chloride 104 mmol/L (96-109); Chol/HDL Ratio 3.29 Ratio; Globulin 1.9 d/dL (1.6-3.3); Glucose 155 mg/dL (70-110); LDL Cholesterol,Calculated 50.8 mg/dL (0.0-131.0); Potassium 3.9 mmol/L (3.5-5.5); Sodium 143 mmol/L (135-145); Total Bilirubin 0.6 mg/dL (0.3-1.2); Total Protein 6.4 d/dL (6.2-8.2)
[2023-01-21 18:15] LABS: Microalbumin Creatinine Ratio <6 mg/g Cr (0-30)
== END | disposition home or self-care (01) ==
LOC: LABWHC1 08:31
PROVIDERS: ATTEND Internal Medicine Endocrinology, Diabetes & Metabolism
DX: E11.65 Type 2 diabetes mellitus with hyperglycemia (principal)
CPT/HCPCS: 36415; 80053; 80061; 82043; 82570; 83036; 84443

== ENCOUNTER → 2023-04-19 | Outpatient (CLI) | payer MEDICARE ==
[2023-04-19 16:03] LABS: Basophils # (A) 0.07 X 10*3/uL (0.00-0.10); Basophils % (A) 0.8 %; Eosinophils # (A) 0.14 X 10*3/uL (0.04-0.35); Eosinophils % (A) 1.6 %; HCT 45.1 % (39.6-50.0); HGB 15.3 g/dL (13.0-17.0); Lymphocytes # (A) 1.78 X 10*3/uL (0.90-5.00); Lymphocytes % (A) 20.3 %; MCH 28.7 pg (27.0-32.0); MCHC 33.9 g/dL (32.0-37.0); MCV 84.6 FL (80.0-97.0); Mean Platelet Volume 10.3 FL (9.5-12.2); Monocytes # (A) 0.79 X 10*3/uL (0.20-1.00); NRBC Per 100 WBC 0 X 10*3/uL (0.00-0.01); Neutrophils # (A) 5.97 X 10*3/uL (1.80-7.70); Platelet Count 173 X 10*3/uL (140-440); RBC 5.33 X 10*6/uL (4.40-5.60); RDW 13.7 % (11.5-14.5); WBC 8.78 X 10*3/uL (4.50-10.00)
[2023-04-19 16:24] LABS: ALT 13 U/L (10-49); AST 11 U/L (14-35); Albumin 4.5 g/dL (3.8-4.9); Albumin/Globulin Ratio 2.05 Ratio (1.60-3.17); Alkaline Phosphatase 122 U/L (41-126); BUN/Creat Ratio 14.12 Ratio (12.00-20.00); Blood Urea Nitrogen 22.6 mg/dL (9.0-27.0); Calcium 9.3 mg/dL (8.7-10.3); Carbon Dioxide 24.4 mmol/L (21.6-31.8); Chloride 98 mmol/L (96-109); Chol/HDL Ratio 3.32 Ratio; Globulin 2.2 g/dL (1.6-3.3); Glucose 149 mg/dL (70-110); LDL Cholesterol,Calculated 57.1 mg/dL (0.0-131.0); Potassium 3.2 mmol/L (3.5-5.5); Sodium 138 mmol/L (135-145); Total Bilirubin 0.6 mg/dL (0.3-1.2); Total Protein 6.7 g/dL (6.2-8.2)
[2023-04-19 22:17] LABS: Microalbumin Creatinine Ratio <8 mg/g Cr (0-30)
== END | disposition home or self-care (01) ==
LOC: LABWHC1 09:01
PROVIDERS: ATTEND Internal Medicine
DX: N18.9 Chronic kidney disease, unspecified (principal); D63.1 Anemia in chronic kidney disease; E11.65 Type 2 diabetes mellitus with hyperglycemia; E11.22 Type 2 diabetes mellitus with diabetic chronic kidney disease
CPT/HCPCS: 36415; 80053; 80061; 82043; 82570; 83036; 84443; 85025

== ENCOUNTER → 2023-09-10 | Outpatient (CLI) | payer MEDICARE ==
[2023-09-10 14:29] LABS: HCT 39.7 % (39.6-50.0); HGB 13.3 g/dL (13.0-17.0); MCH 27.9 pg (27.0-32.0); MCHC 33.5 g/dL (32.0-37.0); MCV 83.4 FL (80.0-97.0); Mean Platelet Volume 10.8 FL (9.5-12.2); NRBC Per 100 WBC 0 X 10*3/uL (0.00-0.01); Platelet Count 148 X 10*3/uL (140-440); RBC 4.76 X 10*6/uL (4.40-5.60); RDW 13.7 % (11.5-14.5); WBC 5.57 X 10*3/uL (4.50-10.00)
[2023-09-10 14:54] LABS: ALT 13 U/L (10-49); AST 16 U/L (14-35); Albumin 4.3 g/dL (3.8-4.9); Albumin/Globulin Ratio 2.15 Ratio (1.60-3.17); Alkaline Phosphatase 97 U/L (41-126); BUN/Creat Ratio 17.12 Ratio (12.00-20.00); Blood Urea Nitrogen 27.4 mg/dL (9.0-27.0); Calcium 9.1 mg/dL (8.7-10.3); Carbon Dioxide 24.8 mmol/L (21.6-31.8); Chloride 102 mmol/L (96-109); Chol/HDL Ratio 3.34 Ratio; Glucose 153 mg/dL (70-110); LDL Cholesterol,Calculated 58.4 mg/dL (0.0-131.0); Potassium 4.1 mmol/L (3.5-5.5); Prostate Specific Antigen 0.83 ng/mL (0.000-6.500); Sodium 139 mmol/L (135-145); Total Bilirubin 0.6 mg/dL (0.3-1.2); Total Protein 6.3 g/dL (6.2-8.2)
[2023-09-10 18:23] LABS: Microalbumin Creatinine Ratio <12 mg/g Cr (0-30)
== END | disposition home or self-care (01) ==
LOC: LABWHC1 08:11
PROVIDERS: ATTEND Internal Medicine Endocrinology, Diabetes & Metabolism
DX: E11.65 Type 2 diabetes mellitus with hyperglycemia (principal)
CPT/HCPCS: 36415; 80053; 80061; 82043; 82570; 83036; 84153; 84443; 85027

== ENCOUNTER → 2023-10-19 | Outpatient (CLI) | payer MEDICARE ==
[2023-10-19 15:00] LABS: HGB 14.9 g/dL (13.0-17.0); MCH 28.3 pg (27.0-32.0); MCHC 33.1 g/dL (32.0-37.0); MCV 85.4 FL (80.0-97.0); Mean Platelet Volume 10.7 FL (9.5-12.2); NRBC Per 100 WBC 0 X 10*3/uL (0.00-0.01); Platelet Count 175 X 10*3/uL (140-440); RBC 5.27 X 10*6/uL (4.40-5.60); RDW 13.4 % (11.5-14.5); WBC 7.67 X 10*3/uL (4.50-10.00)
[2023-10-19 15:02] LABS: Blood Urea Nitrogen 25.4 mg/dL (9.0-27.0); Carbon Dioxide 25.5 mmol/L (21.6-31.8); Chloride 102 mmol/L (96-109); Potassium 4.2 mmol/L (3.5-5.5); Sodium 140 mmol/L (135-145)
== END | disposition home or self-care (01) ==
LOC: LABPAT 08:12
PROVIDERS: ATTEND Internal Medicine Interventional Cardiology
DX: Z01.812 Encounter for preprocedural laboratory examination (principal); R07.9 Chest pain, unspecified
CPT/HCPCS: 36415; 80051; 82565; 84520; 85027

== ENCOUNTER 2023-10-25 05:32 | Day surgery (SDC) | payer MEDICARE ==
[2023-10-25] MEDS ORDERED: HEPARIN SODIUM,PORCINE 10,000 UNIT in SODIUM CHLORIDE 0.9% 1,000 ML IRRIGATION PRN (05:46)
[2023-10-25] MEDS ORDERED: NITROGLYCERIN SL TABS 0.4 MG TAB SUBLINGUAL PRN ×2 (05:46→08:42)
[2023-10-25] MEDS ORDERED: ALPRAZolam 0.5 MG TAB PO PRN (05:46)
[2023-10-25] MEDS ORDERED: HEPARIN SODIUM,PORCINE (1 ML) 2,500 UNIT in SODIUM CHLORIDE 0.9% 250 ML IRRIGATION PRN (05:46)
[2023-10-25] MEDS: SODIUM CHLORIDE 0.9% 1,000 ML in EMPTY BAG 1 BAG IV SCH ×2 (06:12→09:44)
[2023-10-25] MEDS: IV FLUID CONTINUATION 1,000 ML IV ONE (06:12)
[2023-10-25] MEDS: ALPRAZolam 0.25 MG TAB PO PRN (06:20)
[2023-10-25] MEDS: ASPIRIN 325 MG TAB PO STA (06:20)
[2023-10-25 06:33] LABS: Glucose,Whole Blood 147 mg/dL (70-110)
[2023-10-25 06:53] VITALS: RESP 16
[2023-10-25] MEDS ORDERED: VERAPAMIL 2.5 MG/ML 2 ML AMP ONE (07:20)
[2023-10-25] MEDS ORDERED: LIDOCAINE 1% INJ 10MG/ML (20 ML MDV) ONE (07:20)
[2023-10-25] MEDS ORDERED: fentaNYL (PF) 50 MCG/ML 2 ML AMP ONE ×2 (07:28→08:13)
[2023-10-25] MEDS ORDERED: HEPARIN SODIUM 1,000 UN/ML (10ML VL) ONE ×2 (07:29→08:47)
[2023-10-25] MEDS: fentaNYL (PF) 50 MCG/1 ML VIAL IVP ONE ×4 (07:42→08:20)
[2023-10-25] MEDS: MIDAZOLAM 2 MG/2 ML VIAL IVP ONE ×6 (07:42→08:11)
[2023-10-25] MEDS: LIDOCAINE 1% INJ 10MG/ML (20 ML MDV) SQ ONE ×2 (07:45→07:46)
[2023-10-25] MEDS: VERAPAMIL 2.5 MG/ML 4 ML VIAL INTRAARTER ONE (07:47)
[2023-10-25] MEDS: HEPARIN SODIUM 1,000 UN/ML (10ML VL) IVP ONE ×3 (07:48→08:50)
[2023-10-25] MEDS ORDERED: TICAGRELOR 90 MG TAB ONE (07:56)
[2023-10-25] MEDS: TICAGRELOR 90 MG TAB PO ONE (07:57)
[2023-10-25] MEDS ORDERED: niCARdipine 25 MG/10 ML VIAL ONE (08:04)
[2023-10-25] MEDS ORDERED: tiZANidine 4 MG TAB PO PRN (08:39)
[2023-10-25] MEDS ORDERED: ALPRAZolam 0.25 MG TAB PO PRN (08:39)
[2023-10-25] MEDS ORDERED: MAG HYDROX/AL HYDROX/SIMETH 30 ML CUP PO PRN (08:42)
[2023-10-25] MEDS ORDERED: ATROPINE SULFATE 0.1 MG/ML 10ML SYRINGE IV PRN (08:42)
[2023-10-25] MEDS ORDERED: RX INFO: IV CONTRAST WAS GIVEN 1 EACH MISC MISCELLANE PRN (08:42)
--- NOTE | 2023-10-25 08:49 | P.PCN ---
Date of Procedure: 10/25/23 Operative Findings: CARDIAC CATHETERIZATION AND PERCUTANEOUS CORONARY INTERVENTION PERFORMING PHYSICIAN: Neftaly Harrison MD, [facility] PROCEDURE PERFORMED: 1. Selective right and left coronary angiogram 2. Left heart catheterization 3. Successful stenting of proximal LAD using 4.0 x 23 mm Xience MARLEEN with an excellent angiographic results with adjunctive use of intravascular imaging 4. IFR of the RCA 5. Ultrasound-guided access of the right radial artery INDICATION: Chest discomfort concerning for unstable angina in this 73-year-old gentleman with known CAD as well as diabetes and hypertension and dyslipidemia COMPLICATION: None APPROACH: Right radial artery LEVEL OF SEDATION: Moderate with the sedation time off 56 minutes PROCEDURE DESCRIPTION: After obtaining informed consent the patient was brought to the cardiac Medical Practitioners. The right radial artery was cannulated using micropuncture technique under ultrasound guidance micropuncture wire passed easily then I placed a 6 Swedish 11 cm sheath at the right radial artery with I gave the patient 2 mg of verapamil intra-arterial and 5000's of heparin intravenous. Continuous ACT monitoring was performed with additional heparin was given throughout the procedure. Selective right and left coronary angiogram performed using JR4 and JL 3.5 catheters. Left heart catheterization was performed using a pigtail catheter with after that I decided to intervene on the LAD and do an IFR of the RCA. Anticoagulation continued using heparin. I did engage the left main using JL 3.5 guide. I wired using a run-through wire. Intravascular ultrasound was performed that showed a diameter around 4 mm. I did predilatation using 3.5 mm noncompliant balloon before I deployed a 4.0 x 23 mm stent which was postdilated using 5 mm noncompliant balloon with final angiogram showing excellent angiographic results. After that I did zeroing the Doppler wire and equalized between the Doppler wire and guiding catheter which was JR4 guiding catheter and subsequently the RCA was engaged and I did an IFR and that came into at 0.88. The procedure was completed with no complication SELECTIVE CORONARY ANGIOGRAM: The right coronary artery: Large-caliber vessel and a dominant vessel with intermediate to severe disease involving the mid RCA documented to be flow-limiting by Doppler wire Left main: Is angiographically normal The left circumflex: Large-caliber vessel nondominant vessel appears to be angiographically normal and gives rise into a OM which appears to be normal The left anterior descending artery: Has critical disease involving the proximal portion appears to be in the range of 80 to 90% HEMODYNAMICS: The LVEDP was 5 mmHg with no significant gradient across aortic valve POSTPROCEDURE MANAGEMENT: 1. Dual antiplatelet therapy using aspirin and Brilinta for 6 month 2. Aggressive cholesterol control 3. Follow-up with the patient
[2023-10-25] MEDS: IOPAMIDOL-370 100ML BTL INTRATHECA ONE ×2 (08:51)
[2023-10-25] MEDS ORDERED: CHOLECALCIFEROL 25 MCG (1000 IU) TABLET PO SCH (09:00)
[2023-10-25] MEDS ORDERED: NON FORMULARY DRUG (Ubidecarenone [Co Q-10] 300 MG Capsule) PO SCH (09:00)
[2023-10-25] MEDS: ONDANSETRON 4 MG/2 ML VIAL ONE ×2 (09:03→09:09)
[2023-10-25] MEDS: ATORVASTATIN 80 MG TAB PO STA (09:46)
[2023-10-25] MEDS: ONDANSETRON 4 MG/2 ML VIAL IVP STA (09:47)
[2023-10-25] MEDS: LOSARTAN 50 MG TAB PO SCH (09:59)
[2023-10-25] MEDS: amLODIPine 5 MG TAB PO SCH (09:59)
[2023-10-25] MEDS: METOPROLOL SUCCINATE (ER) 25 MG TAB.ER.24H PO SCH (10:00)
[2023-10-25] MEDS: glipiZIDE 10 MG TAB PO SCH (10:35)
[2023-10-25] MEDS: TRIAMTERENE-HCTZ 37.5-25MG 1 EACH CAP PO SCH (10:41)
[2023-10-25] MEDS: CHOLECALCIFEROL 25 MCG (1000 IU) TABLET PO SCH (10:41)
[2023-10-25] MEDS: NON FORMULARY DRUG (Finerenone [Kerendia] 10 MG Tablet) PO SCH (20:36)
[2023-10-25] MEDS: ZOLPIDEM 5 MG TAB PO PRN (21:21)
[2023-10-25] MEDS: traMADol 50 MG TAB PO PRN (21:21)
[2023-10-25 21:22] LABS: Glucose,Whole Blood 144 mg/dL (70-110)
[2023-10-25] MEDS: INSULIN DETEMIR (LEVEMIR) 100 UNIT/ML SYR SQ SCH (23:43)
[2023-10-26] MEDS: PANTOPRAZOLE 40 MG TABLET PO SCH (05:30)
[2023-10-26 06:26] LABS: Glucose,Whole Blood 121 mg/dL (70-110)
[2023-10-26 07:34] LABS: African American GFR (CKD) 55 (>60 ml/min/1.73 sqM); Non-African American GFR(CKD) 48 (>60 ml/min/1.73 sqM)
[2023-10-26 08:15] VITALS: BMI 34.0
[2023-10-26 08:37] VITALS: BP 109/74; PULSE 75; TEMP 97.6
[2023-10-26] MEDS: NON FORMULARY DRUG (Dulaglutide [Trulicity] 1.5 MG/0.5 ML Pen.Injctr) SQ SCH (09:03)
[2023-10-26] MEDS: ASPIRIN 81 MG PO SCH (09:03)
[2023-10-26] MEDS: TICAGRELOR 90 MG TAB PO SCH (09:03)
--- NOTE | 2023-10-26 10:06 | P.DS ---
Providers Attending physician: Neftaly Harrison Consults: 10/25/23 08:42 Consult Physician Routine Consulting Provider: [facility] Consult Reason/Comments: Post Interventional patient Do you want consulting provider notified?: Already Contacted Primary care physician: Skyler Joseph [facility] Course: This is a 73-year-old male who underwent cardiac catheterization yesterday with Dr. Harrison. Patient underwent stenting of the proximal LAD. Patient was also found to have intermediate to severe disease involving the mid RCA documented to be flow-limiting by Doppler wire. Patient examined this morning postprocedure. He denies any chest pain or pressure. He denies any shortness of breath. Vital signs are stable. The patient was deemed stable for discharge home today per Dr. Harrison. Patient will be discharged home with dual antiplatelet therapy using aspirin and Brilinta for 6 months. Patient is also being discharged home with high intensity statin with LDL goal less than 70. Patient will follow-up in the office with Dr. Harrison and pending how he is doing clinically will determine if he undergo stenting of the RCA in the future. Discharge Diagnosis Coronary artery disease, status post stenting of the proximal LAD Intermediate to severe disease involving the mid RCA documented to be flow- limiting by Doppler wire Nurse practitioner note has been reviewed by physician. Signing provider agrees with the documented findings, assessment, and plan of care documented by CEMENT MIXER DRIVER as a scribe. Plan - Discharge Summary Discharge Rx Participant: No New Discharge Prescriptions: New Ticagrelor [Brilinta] 90 mg PO BID #60 tab Rosuvastatin Calcium [Crestor] 40 mg PO HS #30 tablet Aspirin 81 mg PO DAILY #30 tab Discontinued Rosuvastatin [Crestor] 10 mg PO MOWEFR No Action glipiZIDE [Glipizide ER] 10 mg PO BID Omeprazole [PriLOSEC] 20 mg PO DAILY Cholecalciferol [Vitamin D3 (25 Mcg = 1000 Iu)] 2,000 unit PO DAILY Triamterene-Hctz 37.5-25Mg [Dyazide 37.5-25 Capsule] 1 cap PO DAILY amLODIPine [Norvasc] 5 mg PO DAILY Losartan [Cozaar] 50 mg PO DAILY Dulaglutide [Trulicity] 1.5 mg SQ TU Metoprolol Succinate (ER) [Toprol Xl] 12.5 mg PO DAILY tiZANidine [Zanaflex] 4 mg PO Q6HR PRN PRN Reason: Muscle Spasm Ubidecarenone [Co Q-10] 200 mg PO DAILY Insulin Degludec [Tresiba] 6 units SQ HS traMADol HCL 50 mg PO DIRECTED PRN PRN Reason: Pain ALPRAZolam [Xanax] 0.25 mg PO DIRECTED PRN PRN Reason: Anxiety Finerenone [Kerendia] 10 mg PO DAILY Discharge Medication List Cholecalciferol [Vitamin D3 (25 Mcg = 1000 Iu)] 2,000 unit PO DAILY 02/18/15 [History] Omeprazole [PriLOSEC] 20 mg PO DAILY 02/18/15 [History] glipiZIDE [Glipizide ER] 10 mg PO BID 02/18/15 [History] Triamterene-Hctz 37.5-25Mg [Dyazide 37.5-25 Capsule] 1 cap PO DAILY 10/19/17 [History] Dulaglutide [Trulicity] 1.5 mg SQ TU 05/19/19 [History] Losartan [Cozaar] 50 mg PO DAILY 05/19/19 [History] amLODIPine [Norvasc] 5 mg PO DAILY 05/19/19 [History] ALPRAZolam [Xanax] 0.25 mg PO DIRECTED PRN 10/21/23 [History] Finerenone [Kerendia] 10 mg PO DAILY 10/21/23 [History] Insulin Degludec [Tresiba] 6 units SQ HS 10/21/23 [History] Metoprolol Succinate (ER) [Toprol Xl] 12.5 mg PO DAILY 10/21/23 [History] Ubidecarenone [Co Q-10] 200 mg PO DAILY 10/21/23 [History] tiZANidine [Zanaflex] 4 mg PO Q6HR PRN 10/21/23 [History] traMADol HCL 50 mg PO DIRECTED PRN 10/21/23 [History] Aspirin 81 mg PO DAILY #30 tab 10/26/23 [Rx] Rosuvastatin Calcium [Crestor] 40 mg PO HS #30 tablet 10/26/23 [Rx] Ticagrelor [Brilinta] 90 mg PO BID #60 tab 10/26/23 [Rx] Follow up Appointment(s)/Referral(s): Neftaly Harrison MD [STAFF PHYSICIAN] - 1 Week (THE OFFICE WILL CALL YOU WITH AN APPOINTMENT DATE AND TIME) Patient Instructions/Handouts: Moderate Sedation (DC), After Radial Heart Catheterization (GEN) Activity/Diet/Wound Care/Special Instructions: No driving for two days Ok to shower tomorrow but no baths, pools, lakes, doing dishes by hand for five days. (REMOVE DRESSING AFTER 24HOURS, NO NEED TO REAPPLY) Signs of infection IE: fever, rash, drainage from puncture site, swelling go to ER/doctor for immediate evaluation. Avoid using right wrist/hand to bend, flex, lift greater than 5 lbs for five days. For Heavy Bleeding of puncture site apply firm direct pressure and return to ER. Do not attempt to drive self. low sodium/low fat diet medications as directed by Cardiologists
[2023-10-27] MEDS ORDERED: ATORVASTATIN 20 MG TAB PO SCH (09:00)
== END 2023-10-26 10:42 | disposition home or self-care (01) ==
LOC: CATHCVL 05:32 → 6NMEDSUR 08:37 → CATHCVL 10-26 10:42
PROVIDERS: ATTEND Internal Medicine Interventional Cardiology
DX: I25.10 Atherosclerotic heart disease of native coronary artery without angina pectoris (principal); I10 Essential (primary) hypertension; E78.5 Hyperlipidemia, unspecified; E11.9 Type 2 diabetes mellitus without complications; E66.3 Overweight; Z79.85 Long-term (current) use of injectable non-insulin antidiabetic drugs; Z79.899 Other long term (current) drug therapy; Z79.84 Long term (current) use of oral hypoglycemic drugs
CPT/HCPCS: 92978; 93458; 93799; 76937; 82565; 99152; 99153 ×3; C9600; C1887 ×2; C1769 ×3; C1894; C1753; C1874; C1725; J2250; J2405; J2001; J1644; Q9967; J3010; 93005

== ENCOUNTER 2023-11-24 09:55 | Day surgery (SDC) | payer MEDICARE ==
[~2023-11-24 09:55] MED LIST changes: +ALPRAZolam 0.5 MG TAB PO PRN; +HEPARIN SODIUM,PORCINE (1 ML) 2,500 UNIT in SODIUM CHLORIDE 0.9% 250 ML IRRIGATION PRN; +HEPARIN SODIUM,PORCINE 10,000 UNIT in SODIUM CHLORIDE 0.9% 1,000 ML IRRIGATION PRN; -LACTATED RINGERS 1,000 ML IV SCH; -LIDOCAINE 1% 20 ML VIAL (10MG/ML) FOR IV START INTRADERMA PRN; +NITROGLYCERIN SL TABS 0.4 MG TAB SUBLINGUAL PRN
[2023-11-24] MEDS: SODIUM CHLORIDE 0.9% 1,000 ML in EMPTY BAG 1 BAG IV SCH ×2 (10:15→14:57)
[2023-11-24] MEDS: ALPRAZolam 0.25 MG TAB PO PRN (10:16)
[2023-11-24] MEDS: IV FLUID CONTINUATION 1,000 ML IV ONE (10:16)
[2023-11-24 10:17] LABS: Glucose,Whole Blood 124 mg/dL (70-110)
[2023-11-24 10:44] LABS: Basophils # (A) 0.1 k/uL (0-0.2); Basophils % (A) 1 %; Eosinophils # (A) 0.2 k/uL (0-0.7); Eosinophils % (A) 2 %; HCT 44.5 % (39.0-53.0); HGB 14.6 gm/dL (13.0-17.5); Lymphocytes # (A) 2.9 k/uL (1.0-4.8); Lymphocytes % (A) 31 %; MCHC 32.7 g/dL (31.0-37.0); MCV 88.7 fL (80.0-100.0); Mean Platelet Volume 8.5; Monocytes # (A) 0.7 k/uL (0-1.0); Monocytes % (A) 8 %; Neutrophils # (A) 5.1 k/uL (1.3-7.7); Neutrophils % (A) 55 %; Platelet Count 141 k/uL (150-450); RBC 5.01 m/uL (4.30-5.90); RDW 13.4 % (11.5-15.5); WBC 9.3 k/uL (3.8-10.6)
[2023-11-24 10:52] LABS: African American GFR (CKD) 48 (>60 ml/min/1.73 sqM); Anion Gap 9 mmol/L; Blood Urea Nitrogen 32 mg/dL (9-20); Calcium 9.3 mg/dL (8.4-10.2); Carbon Dioxide 23 mmol/L (22-30); Chloride 105 mmol/L (98-107); Glucose 133 mg/dL (74-99); Non-African American GFR(CKD) 42 (>60 ml/min/1.73 sqM); Potassium 4.1 mmol/L (3.5-5.1); Sodium 137 mmol/L (137-145)
[2023-11-24] MEDS ORDERED: VERAPAMIL 2.5 MG/ML 2 ML AMP ONE (11:50)
[2023-11-24] MEDS ORDERED: LIDOCAINE 1% INJ 10MG/ML (20 ML MDV) ONE (11:50)
[2023-11-24] MEDS ORDERED: fentaNYL (PF) 50 MCG/ML 2 ML AMP ONE (11:59)
[2023-11-24] MEDS ORDERED: HEPARIN SODIUM 1,000 UN/ML (10ML VL) ONE (11:59)
[2023-11-24] MEDS: fentaNYL (PF) 50 MCG/ML 2 ML AMP IVP ONE ×2 (12:11→12:35)
[2023-11-24] MEDS: MIDAZOLAM 2 MG/2 ML VIAL IVP ONE ×2 (12:11→12:38)
[2023-11-24] MEDS: LIDOCAINE 1% INJ 10MG/ML (20 ML MDV) SQ ONE (12:12)
[2023-11-24] MEDS ORDERED: MORPHINE SULFATE 4 MG/ML SYRINGE ONE (12:14)
[2023-11-24] MEDS: VERAPAMIL SYRINGE (5 MG/10 ML) INTRAARTER ONE (12:14)
[2023-11-24] MEDS: HEPARIN SODIUM 1,000 UN/ML (10ML VL) IVP ONE ×2 (12:15→12:30)
[2023-11-24] MEDS: MORPHINE SULFATE 4 MG/ML SYRINGE IVP ONE ×2 (12:15→12:45)
[2023-11-24] MEDS: IOPAMIDOL-370 100ML BTL INJ ONE (13:03)
[2023-11-24] MEDS ORDERED: ALPRAZolam 0.25 MG TAB PO PRN (13:08)
[2023-11-24] MEDS ORDERED: tiZANidine 4 MG TAB PO PRN (13:08)
[2023-11-24] MEDS ORDERED: traMADol 50 MG TAB PO PRN (13:08)
[2023-11-24] MEDS ORDERED: NITROGLYCERIN SL TABS 0.4 MG TAB SUBLINGUAL PRN (13:09)
[2023-11-24] MEDS ORDERED: ATROPINE SULFATE 0.1 MG/ML 10ML SYRINGE IV PRN (13:09)
[2023-11-24] MEDS ORDERED: RX INFO: IV CONTRAST WAS GIVEN 1 EACH MISC MISCELLANE PRN (13:09)
[2023-11-24] MEDS ORDERED: MAG HYDROX/AL HYDROX/SIMETH 30 ML CUP PO PRN (13:09)
[2023-11-24] MEDS ORDERED: CLOPIDOGREL 75 MG TAB ONE (13:10)
--- NOTE | 2023-11-24 13:15 | P.PCN ---
Date of Procedure: 11/24/23 Operative Findings: CARDIAC CATHETERIZATION AND PERCUTANEOUS CORONARY INTERVENTION PERFORMING PHYSICIAN: Neftaly Harrison MD, VI PROCEDURE PERFORMED: 1. Selective right and left coronary angiogram 2. Left heart catheterization 3. Successful stenting of mid RCA using 5.0 x 23 mm Xience MARLENE with an excel lent angiographic results with adjunctive use of IVUS and lithotripsy balloon 4. Ultrasound-guided access of the right radial artery INDICATION: Chest discomfort concerning for unstable angina in this patient who underwent recently PCI of the LAD and he is known to have flow-limiting lesion involving the mid RCA with documented abnormal IFR COMPLICATION: None APPROACH: Right radial artery LEVEL OF SEDATION: Moderate with the sedation time off 64 minutes PROCEDURE DESCRIPTION: After obtaining informed consent the patient was brought to the cardiac Electrical And Radio Mechanic in the right radial artery was cannulated using micropuncture technique under ultrasound guidance and micropuncture wire passed easily then I placed a 6 Sierra Leonean 11 cm sheath. Anticoagulation was initiated with heparin IV and 2 mg of verapamil intra-arterial given. Subsequently I decided to intervene on the right coronary artery. Anticoagulation was initiated using heparin with continuous ACT monitoring. Subsequently the RCA was engaged using JR4 guiding catheter. After that I did wired using a run-through wire. Attempting advancing IVUS catheter was unsuccessful but was successful with adjunctive use of guide liner. The IVUS revealed very calcified mid RCA lesion with 360 degree of calcium. At that point I decided to use the shockwave balloon. I did balloon angioplasty using shockwave at 4.0 mm. Subsequently I did advance 5.0 x 23 mm stent with adjunctive use of guide liner and the stent was positioned and deployed under fluoroscopy guidance. Attempting postdilatation using 6 mm noncompliant balloon was unsuccessful with adjunctive use of guide liner but successful using the mailman. Postdilatation was performed using 6 mm balloon with final angiogram showing excellent angiographic results. Subsequently left heart catheterization was performed using the JR4 catheter and then selective left coronary angiogram was performed using the JL 3.5 catheter. The procedure was completed with no complication SELECTIVE CORONARY ANGIOGRAM: The right coronary artery: Large caliber vessel super dominant vessel with a flow-limiting involving the mid RCA with a calcified lesion as described above documented to be flow- limiting by IFR Left main: Is angiographically normal The left circumflex: Large-caliber vessel nondominant vessel with mild disease only The left anterior descending artery: The stent in the proximal LAD is patent HEMODYNAMICS: The LVEDP was around 4 mm with no significant gradient was identified across aortic valve CONCLUSION: Patent stent in the proximal LAD Successful PCI of the mid RCA as described above POSTPROCEDURE MANAGEMENT: 1. Dual antiplatelet therapy using aspirin and Plavix for 6 month 2. Aggressive cholesterol control 3. Follow-up with the patient
[2023-11-24] MEDS: ASPIRIN 325 MG TAB PO STA (14:57)
[2023-11-24] MEDS: NON FORMULARY DRUG (Dulaglutide [Trulicity] 1.5 MG/0.5 ML Pen.Injctr) SQ SCH (14:57)
[2023-11-24] MEDS: CHOLECALCIFEROL 25 MCG (1000 IU) TABLET PO SCH (14:57)
[2023-11-24 20:41] LABS: Glucose,Whole Blood 129 mg/dL (70-110)
[2023-11-24] MEDS: ATORVASTATIN 80 MG TAB PO SCH (21:10)
[2023-11-24] MEDS: ASPIRIN 81 MG PO SCH (21:10)
[2023-11-24] MEDS: CLOPIDOGREL 75 MG TAB PO SCH (21:10)
[2023-11-24] MEDS: INSULIN DETEMIR (LEVEMIR) 100 UNIT/ML SYR SQ SCH (21:11)
[2023-11-24] MEDS: glipiZIDE 10 MG TAB PO SCH (21:14)
[2023-11-24] MEDS: ZOLPIDEM 5 MG TAB PO PRN (22:06)
[2023-11-25 08:00] VITALS: BP 146/79; PULSE 85; RESP 16; TEMP 97.8
[2023-11-25] MEDS: NON FORMULARY DRUG (Finerenone [Kerendia] 10 MG Tablet) PO SCH (08:42)
[2023-11-25] MEDS: LOSARTAN 50 MG TAB PO SCH (08:44)
[2023-11-25] MEDS: METOPROLOL SUCCINATE (ER) 25 MG TAB.ER.24H PO SCH (08:44)
[2023-11-25] MEDS: PANTOPRAZOLE 40 MG TABLET PO SCH (08:45)
[2023-11-25] MEDS: amLODIPine 5 MG TAB PO SCH (08:45)
--- NOTE | 2023-11-25 09:24 | P.DS ---
Providers Attending physician: Neftaly Harrison Consults: 11/24/23 13:09 Consult Physician Routine Consulting Provider: [facility] Consult Reason/Comments: Post Interventional Patient Do you want consulting provider notified?: Already Contacted Primary care physician: Skyler Joseph [facility] Course: The patient is a pleasant 73-year-old gentleman who underwent yesterday successful PCI of the right coronary artery with an excellent angiographic results and no complication from right radial approach He was seen and evaluated this morning with he is asymptomatic and hemodynamically stable. The patient is going to be discharged home on dual antiplatelet therapy along with high intensity statin. I will follow-up with the patient next week in the office. The right radial site is soft and nontender with no bruises and with a good pulse Plan - Discharge Summary Discharge Rx Participant: No New Discharge Prescriptions: Continue glipiZIDE [Glipizide ER] 10 mg PO BID Omeprazole [PriLOSEC] 20 mg PO QAM Cholecalciferol [Vitamin D3 (25 Mcg = 1000 Iu)] 5,000 unit PO Q48H Triamterene-Hctz 37.5-25Mg [Dyazide 37.5-25 Capsule] 1 cap PO QAM amLODIPine [Norvasc] 5 mg PO QAM Losartan [Cozaar] 50 mg PO QAM Dulaglutide [Trulicity] 1.5 mg SQ Q10D Metoprolol Succinate (ER) [Toprol XL] 12.5 mg PO QAM tiZANidine [Zanaflex] 4 mg PO Q6HR PRN PRN Reason: Muscle Spasm Ubidecarenone [Co Q-10] 200 mg PO DAILY Insulin Degludec [Tresiba] 6 units SQ HS Rosuvastatin Calcium [Crestor] 40 mg PO HS #30 tablet Clopidogrel [Plavix] 75 mg PO HS Aspirin 81 mg PO HS traMADol HCL 50 mg PO DIRECTED PRN PRN Reason: Pain ALPRAZolam [Xanax] 0.25 mg PO DIRECTED PRN PRN Reason: Anxiety Finerenone [Kerendia] 10 mg PO QAM Discharge Medication List Cholecalciferol [Vitamin D3 (25 Mcg = 1000 Iu)] 5,000 unit PO Q48H 02/18/15 [History] Omeprazole [PriLOSEC] 20 mg PO QAM 02/18/15 [History] glipiZIDE [Glipizide ER] 10 mg PO BID 02/18/15 [History] Triamterene-Hctz 37.5-25Mg [Dyazide 37.5-25 Capsule] 1 cap PO QAM 10/19/17 [History] Dulaglutide [Trulicity] 1.5 mg SQ Q10D 05/19/19 [History] Losartan [Cozaar] 50 mg PO QAM 05/19/19 [History] amLODIPine [Norvasc] 5 mg PO QAM 05/19/19 [History] ALPRAZolam [Xanax] 0.25 mg PO DIRECTED PRN 10/21/23 [History] Finerenone [Kerendia] 10 mg PO QAM 10/21/23 [History] Insulin Degludec [Tresiba] 6 units SQ HS 10/21/23 [History] Metoprolol Succinate (ER) [Toprol XL] 12.5 mg PO QAM 10/21/23 [History] Ubidecarenone [Co Q-10] 200 mg PO DAILY 10/21/23 [History] tiZANidine [Zanaflex] 4 mg PO Q6HR PRN 10/21/23 [History] traMADol HCL 50 mg PO DIRECTED PRN 10/21/23 [History] Rosuvastatin Calcium [Crestor] 40 mg PO HS #30 tablet 10/26/23 [Rx] Aspirin 81 mg PO HS 11/22/23 [History] Clopidogrel [Plavix] 75 mg PO HS 11/22/23 [History] Follow up Appointment(s)/Referral(s): Neftaly Harrison MD [STAFF PHYSICIAN] - 1 Week (APPOINTMENT MADE ON November @ 3:30PM ) Patient Instructions/Handouts: Moderate Sedation (DC), Cardiac Rehabilitation (ED), Coronary Intravascular Stent Placement (DC), After Radial Heart Catheterization (GEN) Activity/Diet/Wound Care/Special Instructions: *NO LIFTING, PUSHING, OR PULLING ANYTHING OVER 5 POUNDS FOR 5 DAYS *NO DRIVING FOR TODAY *YOU CAN REMOVE YOUR DRESSING TOMORROW BUT DO NOT SUBMERSE YOUR PUNCTURE SITE IN WATER FOR A FEW DAYS TO PREVENT INFECTION - SO NO TUB BATHS, POOLS, HOT TUBS, DISHES...ETC *ANY SIGNS OF BLEEDING (HARDNESS, SWELLING, OR EXCESSIVE BRUISING) HOLD DIRECT PRESSURE ON YOUR PUNCTURE SITE AND COME TO THE NEAREST EMERGENCY ROOM TO GET YOUR PUNCTURE SITE LOOKED AT - DO NOT DRIVE YOURSELF! EITHER CALL EMS OR HAVE SOMEONE DRIVE YOU!
[2023-11-25 09:32] LABS: African American GFR (CKD) 55 (>60 ml/min/1.73 sqM); Non-African American GFR(CKD) 47 (>60 ml/min/1.73 sqM)
== END 2023-11-25 10:26 | disposition home or self-care (01) ==
LOC: CATHCVL 09:55 → 6NMEDSUR 13:03 → CATHCVL 11-25 10:26
PROVIDERS: ATTEND Internal Medicine Interventional Cardiology
DX: I25.10 Atherosclerotic heart disease of native coronary artery without angina pectoris (principal); Z79.02 Long term (current) use of antithrombotics/antiplatelets; Z79.82 Long term (current) use of aspirin; Z95.5 Presence of coronary angioplasty implant and graft
CPT/HCPCS: 92928; 93458; 92978; 92972; 80048; 82565; 85025; C9600; C1769 ×4; C1887 ×2; C1894; C1753; C1874; C1725; C1761; J2250; J2270; J2001; J3010; J1644; Q9967

== ENCOUNTER → 2024-01-04 | Outpatient (CLI) | payer MEDICARE ==
[2024-01-04 15:19] LABS: HCT 38.8 % (39.6-50.0); HGB 13.1 g/dL (13.0-17.0); MCH 28.7 pg (27.0-32.0); MCHC 33.8 g/dL (32.0-37.0); MCV 85.1 FL (80.0-97.0); Mean Platelet Volume 10.1 FL (9.5-12.2); NRBC Per 100 WBC 0 X 10*3/uL (0.00-0.01); Platelet Count 127 X 10*3/uL (140-440); RBC 4.56 X 10*6/uL (4.40-5.60); WBC 5.52 X 10*3/uL (4.50-10.00)
[2024-01-04 18:47] LABS: ALT 13 U/L (10-49); AST 16 U/L (14-35); Albumin 4.3 g/dL (3.8-4.9); Albumin/Globulin Ratio 2.26 Ratio (1.60-3.17); Alkaline Phosphatase 102 U/L (41-126); BUN/Creat Ratio 14.29 Ratio (12.00-20.00); Blood Urea Nitrogen 24.3 mg/dL (9.0-27.0); Calcium 8.9 mg/dL (8.7-10.3); Carbon Dioxide 24.4 mmol/L (21.6-31.8); Chloride 103 mmol/L (96-109); Chol/HDL Ratio 2.77 Ratio; Globulin 1.9 g/dL (1.6-3.3); Glucose 153 mg/dL (70-110); LDL Cholesterol,Calculated 33.3 mg/dL (0.0-131.0); Potassium 4.1 mmol/L (3.5-5.5); Sodium 139 mmol/L (135-145); Total Bilirubin 0.5 mg/dL (0.3-1.2); Total Protein 6.2 g/dL (6.2-8.2)
[2024-01-04 19:17] LABS: Microalbumin Creatinine Ratio <7 mg/g Cr (0-30)
== END | disposition home or self-care (01) ==
LOC: LABWHC1 08:53
PROVIDERS: ATTEND Internal Medicine Endocrinology, Diabetes & Metabolism
DX: E11.65 Type 2 diabetes mellitus with hyperglycemia (principal)
CPT/HCPCS: 36415; 80053; 80061; 82043; 82570; 83036; 84443; 85027

== ENCOUNTER → 2024-04-19 | Outpatient (CLI) | payer MEDICARE ==
[2024-04-19 15:56] LABS: HGB 13.9 g/dL (13.0-17.0); MCH 27.9 pg (27.0-32.0); MCHC 33.1 g/dL (32.0-37.0); MCV 84.3 FL (80.0-97.0); Mean Platelet Volume 10.2 FL (9.5-12.2); NRBC Per 100 WBC 0 X 10*3/uL (0.00-0.01); Platelet Count 152 X 10*3/uL (140-440); RBC 4.98 X 10*6/uL (4.40-5.60); RDW 13.7 % (11.5-14.5); WBC 7.19 X 10*3/uL (4.50-10.00)
[2024-04-19 16:31] LABS: BUN/Creat Ratio 15.76 Ratio (12.00-20.00); Blood Urea Nitrogen 26.8 mg/dL (9.0-27.0); Chloride 102 mmol/L (96-109); Chol/HDL Ratio 2.83 Ratio; Glucose 110 mg/dL (70-110); LDL Cholesterol,Calculated 45.3 mg/dL (0.0-131.0); Potassium 3.7 mmol/L (3.5-5.5); Sodium 140 mmol/L (135-145)
[2024-04-19 16:32] LABS: ALT 15 U/L (10-49); AST 15 U/L (14-35); Albumin 4.5 g/dL (3.8-4.9); Albumin/Globulin Ratio 1.88 Ratio (1.60-3.17); Alkaline Phosphatase 110 U/L (41-126); Calcium 9.2 mg/dL (8.7-10.3); Globulin 2.4 g/dL (1.6-3.3); Prostate Specific Antigen 0.78 ng/mL (0.000-6.500); Total Bilirubin 0.6 mg/dL (0.3-1.2); Total Protein 6.9 g/dL (6.2-8.2)
[2024-04-19 19:28] LABS: Microalbumin Creatinine Ratio <17 mg/g Cr (0-30); Urine Creatinine 72.7 mg/dL (39.0-259.0)
== END | disposition home or self-care (01) ==
LOC: LABWHC1 08:38
PROVIDERS: ATTEND Internal Medicine Endocrinology, Diabetes & Metabolism
DX: E11.65 Type 2 diabetes mellitus with hyperglycemia (principal)
CPT/HCPCS: 36415; 80053; 80061; 82043; 82570; 83036; 84153; 84443; 85027

== ENCOUNTER 2024-05-12 09:56 | Day surgery (SDC) | payer MEDICARE ==
[~2024-05-12 09:56] MED LIST changes: +ALPRAZolam 0.25 MG TAB PO PRN; +ASPIRIN 325 MG TAB PO STA; +ATORVASTATIN 80 MG TAB PO STA; -HEPARIN SODIUM,PORCINE (1 ML) 2,500 UNIT in SODIUM CHLORIDE 0.9% 250 ML IRRIGATION PRN; -HEPARIN SODIUM,PORCINE 10,000 UNIT in SODIUM CHLORIDE 0.9% 1,000 ML IRRIGATION PRN; +SODIUM CHLORIDE 0.9% 1,000 ML in EMPTY BAG 1 BAG IV SCH
[2024-05-12] MEDS: IV FLUID CONTINUATION 1,000 ML IV ONE ×2 (10:25→11:25)
[2024-05-12 10:41] LABS: Glucose,Whole Blood 115 mg/dL (70-110)
[2024-05-12 10:41] LABS: Basophils # (A) 0.1 k/uL (0-0.2); Basophils % (A) 1 %; Eosinophils # (A) 0.2 k/uL (0-0.7); Eosinophils % (A) 3 %; HCT 42.9 % (39.0-53.0); HGB 14.4 gm/dL (13.0-17.5); Lymphocytes # (A) 2.2 k/uL (1.0-4.8); Lymphocytes % (A) 27 %; MCH 28.8 pg (25.0-35.0); MCHC 33.5 g/dL (31.0-37.0); Mean Platelet Volume 6.9; Monocytes # (A) 0.6 k/uL (0-1.0); Monocytes % (A) 7 %; Neutrophils # (A) 5.1 k/uL (1.3-7.7); Neutrophils % (A) 62 %; Platelet Count 149 k/uL (150-450); RBC 4.99 m/uL (4.30-5.90); RDW 13.5 % (11.5-15.5); WBC 8.3 k/uL (3.8-10.6)
[2024-05-12 10:52] LABS: African American GFR (CKD) 46 (>60 ml/min/1.73 sqM); Anion Gap 9 mmol/L; Blood Urea Nitrogen 25 mg/dL (9-20); Calcium 8.9 mg/dL (8.4-10.2); Carbon Dioxide 27 mmol/L (22-30); Chloride 100 mmol/L (98-107); Glucose 127 mg/dL (74-99); Non-African American GFR(CKD) 40 (>60 ml/min/1.73 sqM); Potassium 4.2 mmol/L (3.5-5.1); Sodium 136 mmol/L (137-145)
[2024-05-12] MEDS: HEPARIN SODIUM,PORCINE 10,000 UNIT in SODIUM CHLORIDE 0.9% 1,000 ML IRRIGATION PRN (11:25)
[2024-05-12] MEDS: HEPARIN SODIUM,PORCINE (1 ML) 2,500 UNIT in SODIUM CHLORIDE 0.9% 250 ML IRRIGATION PRN (11:25)
[2024-05-12] MEDS: MIDAZOLAM 2 MG/2 ML VIAL IVP ONE ×2 (11:25→11:30)
[2024-05-12] MEDS: LIDOCAINE 1% INJ 10MG/ML (20 ML MDV) SQ ONE (11:27)
[2024-05-12] MEDS: VERAPAMIL SYRINGE (5 MG/10 ML) INTRAARTER ONE (11:29)
[2024-05-12] MEDS: fentaNYL (PF) 50 MCG/ML 2 ML AMP IVP ONE (11:30)
[2024-05-12] MEDS: HEPARIN SODIUM 1,000 UN/ML (10ML VL) IV ONE (11:30)
[2024-05-12] MEDS: IOPAMIDOL-370 100ML BTL INJ ONE (11:40)
[2024-05-12] MEDS ORDERED: SODIUM CHLORIDE 0.9% 1,000 ML IV SCH (11:45)
[2024-05-12] MEDS ORDERED: RX INFO: IV CONTRAST WAS GIVEN 1 EACH MISC MISCELLANE PRN (11:45)
--- NOTE | 2024-05-12 11:50 | P.PCN ---
Date of Procedure: 05/12/24 Operative Findings: CARDIAC CATHETERIZATION PERFORMING PHYSICIAN: Neftaly Harrison MD, RPVI PROCEDURE PERFORMED: 1. Selective right and left coronary angiogram and IFR of the RCA 2. Left heart catheterization 3. Ultrasound-guided access of the right radial artery INDICATION: Chest discomfort concerning for angina COMPLICATION: None APPROACH: Right radial artery LEVEL OF SEDATION: Moderate with a sedation length of 18 minutes PROCEDURE DESCRIPTION: After obtaining an informed consent, the patient was brought to cardiac crime lab analyst. Local anesthesia was performed using lidocaine subcutaneously. The right radial artery was cannulated using Seldinger technique, the guidewire passed ea sily, following that we advanced a 5-Macanese sheath dilator assembly, the wire and dilator were removed and sheath was flushed. Following that, 2 mg of verapamil along with 5000 unit heparin were given. Selective right and left coronary angiogram using a 6-Macanese JR4 and JL 3.5 catheters. After that I decided to do an IFR of the RCA. After zeroing Dobler wire and equalizing between the Dobler wire and guiding catheter which was JR4 guiding catheter the RCA was engaged and subsequently wired with IFR came to be at 0.95 Following that we did left heart catheterization using 6-Macanese pigtail catheter. The procedure was completed there was no complication. SELECTIVE CORONARY ANGIOGRAM: The right coronary artery: Large-caliber vessel and a dominant vessel with patent stent in the midportion and intermediate lesion involving the proximal portion documented to be nonflow limiting by Doppler wire Left main: Angiographically normal The left circumflex: Large-caliber vessel nondominant vessel appears to have mild disease only with mild disease involving OM1 and OM 2 The left anterior descending artery: The proximal LAD is stented and the stent is patent. No evidence of high-grade stenosis was identified HEMODYNAMICS: The LVEDP was 5 mmHg with no significant gradient across aortic valve CONCLUSION: 1. Patent stent in the mid RCA. Intermediate disease involving the proximal RCA documented to be nonflow limiting by Doppler wire 2. Patent stent in the proximal POSTPROCEDURE MANAGEMENT: Medical treatment
[2024-05-12 12:03] VITALS: RESP 18; TEMP 97.7
[2024-05-12 15:27] VITALS: BP 121/60; PULSE 75
== END 2024-05-12 15:31 | disposition home or self-care (01) ==
LOC: CATHCVL 09:56
PROVIDERS: ATTEND Internal Medicine Interventional Cardiology
DX: I25.10 Atherosclerotic heart disease of native coronary artery without angina pectoris (principal); I10 Essential (primary) hypertension; E78.5 Hyperlipidemia, unspecified; E11.9 Type 2 diabetes mellitus without complications; E66.3 Overweight; Z79.82 Long term (current) use of aspirin; Z79.899 Other long term (current) drug therapy; Z79.84 Long term (current) use of oral hypoglycemic drugs; Z79.85 Long-term (current) use of injectable non-insulin antidiabetic drugs; Z95.5 Presence of coronary angioplasty implant and graft
CPT/HCPCS: 99152; 93458; 93799; 80048; 85025; C1887; C1769 ×2; C1894; J2250; J1644 ×3; J2003; J3010; Q9967

== ENCOUNTER → 2024-09-05 | Outpatient (CLI) | payer MEDICARE ==
[2024-09-05 10:22] LABS: HCT 41.6 % (39.6-50.0); HGB 13.9 g/dL (13.0-17.0); MCHC 33.4 g/dL (32.0-37.0); MCV 83.9 FL (80.0-97.0); Mean Platelet Volume 9.6 FL (9.5-12.2); NRBC Per 100 WBC 0 X 10*3/uL (0.00-0.01); Platelet Count 162 X 10*3/uL (140-440); RBC 4.96 X 10*6/uL (4.40-5.60); RDW 13.7 % (11.5-14.5); WBC 9.23 X 10*3/uL (4.50-10.00)
[2024-09-05 10:41] LABS: Microalbumin Creatinine Ratio <4 mg/g Cr (0-30)
[2024-09-05 19:16] LABS: BUN/Creat Ratio 17.47 Ratio (12.00-20.00); Blood Urea Nitrogen 29.7 mg/dL (9.0-27.0); Chloride 103 mmol/L (96-109); Chol/HDL Ratio 2.86 Ratio; Glucose 162 mg/dL (70-110); LDL Cholesterol,Calculated 35.1 mg/dL (0.0-131.0); Potassium 3.9 mmol/L (3.5-5.5); Sodium 140 mmol/L (135-145)
[2024-09-05 19:17] LABS: ALT 15 U/L (10-49); AST 17 U/L (14-35); Albumin 4.3 g/dL (3.8-4.9); Albumin/Globulin Ratio 1.95 Ratio (1.60-3.17); Alkaline Phosphatase 125 U/L (41-126); Calcium 9.1 mg/dL (8.7-10.3); Carbon Dioxide 21.4 mmol/L (21.6-31.8); Globulin 2.2 g/dL (1.6-3.3); Prostate Specific Antigen 0.92 ng/mL (0.000-6.500); Total Bilirubin 0.4 mg/dL (0.3-1.2); Total Protein 6.5 g/dL (6.2-8.2)
== END | disposition home or self-care (01) ==
LOC: LABWHC1 08:09
PROVIDERS: ATTEND Internal Medicine Endocrinology, Diabetes & Metabolism
DX: E11.65 Type 2 diabetes mellitus with hyperglycemia (principal)
CPT/HCPCS: 36415; 80053; 80061; 82043; 82570; 83036; 84153; 84443; 85027

== ENCOUNTER → 2024-11-23 | Outpatient (CLI) | payer MEDICARE ==
--- NOTE | 2024-11-23 07:54 | XR ---
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 FINDINGS: Partial osseous fusion of the sacroiliac joints bilaterally. Right upper quadrant cholecyst ectomy clips. There is no evidence of fracture or dislocation. There is no soft tissue abnormality. No abnormal calcifications are present. The spine appears intact. The hips appear intact. No signific ant degeneration. IMPRESSION: 1. No acute osseous pathology. 2. Mild degeneration changes of the hips. 3. Partial fusion of the sacroiliac joints bilaterally. [facility], , 11/23/2024 7:52 AM
--- NOTE | 2024-11-23 07:55 | XR ---
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 FINDINGS: No evidence of any acute osseous pathology. No evidence of loss of vertebral body height i s seen. There is normal alignment of the lumbar vertebral bodies. Scattered disc space narrowing. Mul tilevel marginal osteophyte formation throughout the visualized spine. There is facet joint arthropat hy throughout the spine. Scattered at least mild neural foraminal stenosis. Partial fusion of the sac roiliac joints bilaterally. IMPRESSION: 1. No acute fracture. 2. Moderate multilevel disc degeneration. [facility], , 11/23/2024 7:53 AM
== END | disposition home or self-care (01) ==
LOC: RADXRMAIN 07:09
PROVIDERS: ATTEND Internal Medicine Rheumatology
DX: M51.360 Other intervertebral disc degeneration, lumbar region with discogenic back pain only (principal); M16.0 Bilateral primary osteoarthritis of hip; M48.10 Ankylosing hyperostosis [Forestier], site unspecified; M53.3 Sacrococcygeal disorders, not elsewhere classified
CPT/HCPCS: 72100; 72170